=== PATIENT | female | born 1960 | race Caucasian/White ===

== ENCOUNTER 2019-11-30 07:03 | Outpatient (CLI) | payer OTHER, SELFPAY ==
[2019-11-30 07:52] LABS: Hematocrit 42.3 % (37.0-47.0); Mean Corpuscular HGB Conc 33.1 g/dl (32-36); Mean Corpuscular Hemoglobin 30.6 pg (26-34); Mean Corpuscular Volume 92.6 fl (80-100); Mean Platelet Volume 8.6 fl (7.4-10.4); Platelet Count Result 269 k/mm3 (150-375); Red Blood Count 4.57 M/mm3 (4.2-5.4); Red Cell Distribution Width 12.6 % (11.5-14.5); White Blood Count 4.9 K/mm3 (4.5-10.0)
[2019-11-30 08:04] LABS: Alanine Aminotransferase 41 U/L (4-35); Albumin Level 4.2 g/dL (3.5-5.1); Alkaline Phosphatase 143 U/L (38-126); Aspartate Amino Transferase 30 U/L (14-36); Bilirubin,Total 0.5 mg/dL (0.2-1.3); Blood Urea Nitrogen 21 mg/dL (7-17); Calcium 9.4 mg/dL (8.4-10.2); Carbon Dioxide 29 mmol/L (22-30); Chloride 100 mmol/L (98-107); Cholesterol 238 mg/dL (0-200); Estimated Glomerular Filt Rate > 60; Glucose 84 mg/dL (65-105); HDL Direct 84 mg/dL; Potassium 4.3 mmol/L (3.4-5.0); Sodium 141 mmol/L (137-145); Triglycerides 100 mg/dL (<150)
[2019-11-30 08:14] LABS: LDL Cholesterol Direct 130 mg/dL
[2019-11-30 09:08] LABS: Folic Acid 16.7 ng/mL (2.76->20)
[2019-12-03 10:21] LABS: Metanephrine, Free <25 pg/mL (<=57); Normetanephrine, Free 128 pg/mL (<=148); Total, Free (MN + NMN) 128 pg/mL (<=205)
== END 2019-11-30 07:04 | disposition home or self-care (01) ==
PROVIDERS: PCP Physician Assistant; Visit Provider Physician Assistant
DX: Z00.00 Encounter for general adult medical examination without abnormal findings (principal); I10 Essential (primary) hypertension
CPT/HCPCS: 36415; 80053; 80061; 82607; 82746; 83835; 84443; 85027

== ENCOUNTER 2019-12-20 07:55 | Outpatient (CLI) | payer OTHER, SELFPAY ==
--- NOTE | ~2019-12-20 | DEXA_ITS ---
Bone Density Report Name: Kimi Davison Age: 59 Sex: Female Ethnicity: White Date of : 1960 Indication: postmenopausal; height loss; Referring Provider: FÁTIMA DICKENS Study: Bone densitometry was performed. Exam Date: December 20, 2019 Accession number: [id number] Bone Density: Region BMD T-score Z-score Classification AP Spine (L1, L3) 1.567 5.0 6.3 Normal Femoral Neck (Left) 0.992 1.3 2.5 Normal Total Hip (Left) 1.127 1.5 2.4 Normal Total Hip Bilateral Avg 1.094 1.3 2.1 Normal Femoral Neck (Right) 0.970 1.1 2.3 Normal Total Hip (Right) 1.059 1.0 1.8 Normal World Health Organization criteria for BMD impression classify patients as: Normal (T-score at or above -1.0), Osteopenia (T-score between -1.0 and -2.5), or Osteoporosis (T-score at or below -2.5). 10-year Fracture Risk: FRAX not reported because: All T-scores for Spine Total, Hip Total, Femoral Neck at or above -1.0 Previous Exams: Region Exam Age BMD T-score BMD Change BMD Change Date g/cm2 vs Baseline vs Previous AP Spine(L1, L3) 12/20/2019 59 1.567 5.0 0.133(9.3%)# 0.029(1.9%)* 04/27/2017 57 1.537 4.8 0.104(7.2%)# 0.104(7.2%)# 11/10/2011 51 1.434 3.8 Total Hip(Left) 12/20/2019 59 1.127 1.5 -0.064(-5.3%)# -0.016(-1.4%) 04/27/2017 57 1.143 1.6 -0.048(-4.0%)# -0.048(-4.0%)# 11/10/2011 51 1.191 2.0 Total Hip(Right) 12/20/2019 59 1.059 1.0 -0.141(-11.7%) -0.044(-4.0%)* 04/27/2017 57 1.102 1.3 -0.097(-8.1%)# -0.097(-8.1%)# 11/10/2011 51 1.199 2.1 *Denotes significance at 95% confidence level, LSC for AP Spine = 0.022 g/cm2, LSC for Total Hip = 0.027 g/cm2 Clinical Information Provided by Patient: Patient maximum height was 65 Menopause Age: 51 No regular weight bearing exercise Onset of menses at age 14 Number of children 2 Impression: The patient has normal bone mass. The BMD for the Total Hip(Right) decreased, changing by -4.0% since the last DXA exam. Discussion: BONE DENSITY IS ABOVE THE MINIMUM DESIRABLE LEVEL AT ALL SKELETAL SITES TESTED. This patient?s bone mineral density is above the minimum desirable level (T-score -1.0 or better) at all sites measured. The patient should follow a healthful lifestyle (good nutrition with adequate calcium and vitamin D, and appropriate weight-bearing exercise). Follow-Up: Consider repeating this study in 3 to 4 years to reassess this patient's status, or sooner if the
== END 2019-12-20 07:56 | disposition home or self-care (01) ==
LOC: ANHIMG 07:57
PROVIDERS: PCP Physician Assistant; Visit Provider Obstetrics & Gynecology
DX: Z13.820 Encounter for screening for osteoporosis (principal); Z78.0 Asymptomatic menopausal state
CPT/HCPCS: 77080

== ENCOUNTER 2020-02-14 14:30 | Outpatient (RCR) | payer OTHER, SELFPAY ==
--- NOTE | 2020-01-17 15:49 | PTOPEVAL ---
INITIAL PHYSICAL THERAPY EVALUATION Thank you for referring Kimi Davison to [facility]. She will be seen in PT 1x/wk for 6 wks for vestibular rehab exercises. I was not able to reproduce + BPPV testing but she did have + VOR testing. Please review, sign, date and return this plan of care FREDDY. I agree with and certify that the following plan of care is medically necessary. Referring Physician Date Admitting Provider: Attending Provider: Bryan Rocha PA-C Referring Provider: *PT Outpatient Evaluation Start: 01/17/20 13:48 Freq: Status: Active Protocol: Document 01/17/20 13:40 BAN (Rec: 01/17/20 15:25 BAN [id number]) Therapy Assessment Status Assessment Status Assessment Status Evaluation Outpatient Past Medical History Past Medical History Source of Past Medical History Patient Neurological History Hx Migraine Yes: off/on, hasn't had a bad one in a long while Cardiovascular History Hx Hypertension Yes Respiratory History Hx Respiratory Disorders No Significant History Gastrointestinal History Hx Cholecystectomy Yes Hx Gastroesophageal Reflux Disease Yes Genitourinary History Hx Genitourinary Disorders No Significant History Musculoskeletal History Hx Orthopedic Surgery Yes: R knee surgery-torn meniscu Hx Spinal Surgery Yes: 20 yrs ago-L3-4 laminectomy Endocrine History Hx Endocrine Disorders No Significant History Reproductive History Hx Reproductive Disorders No Significant History Evaluation Information Problem Diagnosis benign paroxysmal vertigo Onset last week - real dizzy last Thursday night 01/10/20 Additional Evaluation Detail 1st episode 12 yrs ago - passed out - vomited - happened at work 2nd episode - another episode at work - didn't vomit - cold compresses at neck and forehead relieved symptoms Subjective Information Went to bed dizzy, woke up Query Text:As Reported By Patient/ dizzy - began to worry about Family BP - initially she thought it was BP related - was tested at MD office - severe reaction to [place] Hallpike manuever on the R side Increased dizziness rolling over in bed - usually worse to the L. Has always had difficulty with rides. Prior Level of Function Medications
--- NOTE | 2020-02-14 17:09 | PTOPEVAL ---
PHYSICAL THERAPY DISCHARGE SUMMARY Thank you for referring Kimi Davison to [facility]. Kimi was seen for 5 visits and all goals have been met. I agree with Kimi's discharge from PT. Referring Physician Date Admitting Provider: Attending Provider: Bryan Rocha PA-C Referring Provider: *PT Outpatient Evaluation Start: 01/17/20 13:48 Freq: Status: Active Protocol: Document 02/14/20 14:30 BAN (Rec: 02/14/20 17:09 BAN [email or web address]) Therapy Assessment Status Assessment Status Assessment Status Discharge Evaluation Information Problem Subjective Information Kimi reports that she is Query Text:As Reported By Patient/ doing well with her HEP. She Family states that she doesn't have dizziness while rolling over in bed now. She also has noticed that her eyes do not ache like they used to. She has no c/o's dizziness in regards to household or work activities now. Pain Assessment Timing of Pain Assessment Timing of Pain Assessment Assessment Self Report Self Report Pain Level 0 Pain Score Pain Score 0: Self Report PT Clinical Summary Clinical Summary Protocol: PTEVCODE PT Clinical Summary Dizziness Handicap Inventory - 6% Kimi has done well in PT in regards to vestibular rehabiliation. At her initial evaluation, Kimi had positive VOR tests and negative BPPV testing. PT treatment has been directed towards habituating her VOR - which has been successful. Kimi has been very compliant with her HEP which has helped with her success. She is to continue with her HEP on a regular basis and call if she has any questions. All goals have been met - d/ c from PT to HEP.
== END 2020-02-15 09:03 | disposition home or self-care (01) ==
LOC: ANHPT 14:30
PROVIDERS: PCP Physician Assistant; Visit Provider Physician Assistant
DX: H81.10 Benign paroxysmal vertigo, unspecified ear (principal)
CPT/HCPCS: 97110; 97162

== ENCOUNTER 2020-07-18 10:16 | Outpatient (CLI) | payer OTHER, SELFPAY ==
--- NOTE | 2020-07-18 11:30 | NEURO_ITS ---
Patient Number: [id number] Impression: # Complains of numbness an paresthesia of right hand. # Right Carpal Tunnel Syndrome. # No ulnar neuropathy. # Normal needle/EMG exam. Nerve Conduction Studies Anti Sensory Summary Table Stim Site NR Peak (ms) P-T Amp (?V) Site1 Site2 Delta-P (ms) Dist (cm) Archie (m/s) Right Median Anti Sensory (2-3nd Digit) Wrist 4.2 17.9 Wrist 2-3nd Digit 4.2 14.0 33 Wrist 4.3 8.9 Wrist 2-3nd Digit 4.2 14.0 33 Right Radial Anti Sensory (Base 1st Digit) Wrist 2.4 14.0 Wrist Base 1st Digit 2.4 0.0 Right Ulnar Anti Sensory (5th Digit) Wrist 2.3 27.1 Wrist 5th Digit 2.3 14.0 61 Motor Summary Table Stim Site NR Onset (ms) O-P Amp (mV) Site1 Site2 Delta-0 (ms) Dist (cm) Archie (m/s) Right Median Motor (Abd Poll Brev) Wrist 4.1 2.7 Elbow Wrist 4.7 27.0 57 Elbow 8.8 2.5 Right Ulnar Motor (Abd Dig Minimi) Wrist 2.3 5.0 A Elbow Wrist 5.1 29.0 57 A Elbow 7.4 3.8 F Wave Studies NR F-Lat (ms) L-R F-Lat (ms) Right Median (Mrkrs) (Abd Poll Brev) 30.04 Right Ulnar (Mrkrs) (Abd Dig Min) 29.06 EMG Side Muscle Nerve Root Ins Act Fibs Amp Dur Recrt Comment Right 1stDorInt Ulnar C8-T1 Nml Nml Nml Nml Nml Right Ext Indicis Radial (Post Int) C7-8 Nml Nml Nml Nml Nml Right Ext Digitorum Radial (Post Int) C7-8 Nml Nml Nml Nml Nml Right BrachioRad Radial C5-6 Nml Nml Nml Nml Nml Right PronatorTeres Median C6-7 Nml Nml Nml Nml Nml Right Abd Poll Brev Median C8-T1 Nml Nml Nml Nml Nml Right ABD Dig Min Ulnar C8-T1 Nml Nml Nml Nml Nml MTDD
== END 2020-07-18 10:17 | disposition home or self-care (01) ==
PROVIDERS: PCP Physician Assistant; Visit Provider Physician Assistant
DX: R20.0 Anesthesia of skin (principal); G56.01 Carpal tunnel syndrome, right upper limb
CPT/HCPCS: 95886; 95909

== ENCOUNTER 2020-11-30 13:58 | Outpatient (CLI) | payer OTHER, SELFPAY ==
[2020-11-30 14:55] LABS: Add Urine Microscopic? YES; Appearance Urine Clear (Clear); Bilirubin Urine Negative (Negative); Blood Urine 2+ (Negative); Color Urine Straw (Yellow); Glucose Urine UA Negative (Negative); Ketones Urine Negative (Negative); Leukocyte Esterase Ur 2+ LEU/UL (NEGATIVE); Mucus Urine Rare /lpf; Nitrate Urine Negative (Negative); Protein Urine Negative (Negative); Specific Grav Ur 1.011 (1.001-1.035); Urobilinogen Urine Negative mg/dL (<2.0); WBC Urine >75 /hpf (0-3)
== END 2020-11-30 13:59 | disposition home or self-care (01) ==
PROVIDERS: PCP Physician Assistant; Visit Provider Physician Assistant
DX: R30.0 Dysuria (principal)
CPT/HCPCS: 81001; 87086

== ENCOUNTER 2021-01-08 07:21 | Outpatient (CLI) | payer OTHER, SELFPAY ==
[2021-01-08 07:54] LABS: Hematocrit 37.7 % (37.0-47.0); Hemoglobin 12.8 g/dL (12.0-15.0); Mean Corpuscular Hemoglobin 31.4 pg (26-34); Mean Corpuscular Volume 92.4 fl (80-100); Mean Platelet Volume 8.5 fl (7.4-10.4); Platelet Count Result 266 k/mm3 (150-375); Red Blood Count 4.08 M/mm3 (4.2-5.4); Red Cell Distribution Width 12.4 % (11.5-14.5); White Blood Count 5.3 K/mm3 (4.5-10.0)
[2021-01-08 08:07] LABS: Alanine Aminotransferase 22 U/L (4-35); Albumin Level 4.1 g/dL (3.5-5.1); Alkaline Phosphatase 78 U/L (38-126); Anion Gap 5 mmol/L (8-16); Aspartate Amino Transferase 28 U/L (14-36); Bilirubin,Total 0.5 mg/dL (0.2-1.3); Blood Urea Nitrogen 28 mg/dL (7-17); Calcium 9.4 mg/dL (8.4-10.2); Carbon Dioxide 31 mmol/L (22-30); Chloride 104 mmol/L (98-107); Cholesterol 232 mg/dL (0-200); Estimated Glomerular Filt Rate 51; Glucose 96 mg/dL (65-105); HDL Direct 76 mg/dL; Sodium 140 mmol/L (137-145); Triglycerides 94 mg/dL (<150)
[2021-01-08 08:18] LABS: LDL Cholesterol Direct 108 mg/dL
[2021-01-08 09:12] LABS: Folic Acid 9.9 ng/mL (2.76->20)
== END 2021-01-08 07:22 | disposition home or self-care (01) ==
PROVIDERS: PCP Physician Assistant; Visit Provider Physician Assistant
DX: Z00.00 Encounter for general adult medical examination without abnormal findings (principal)
CPT/HCPCS: 36415; 80053; 80061; 82607; 82746; 84443; 85027

== ENCOUNTER 2021-02-28 07:18 | Outpatient (CLI) | payer OTHER, SELFPAY ==
--- NOTE | ~2021-02-28 | MM_ITS ---
EXAMINATION: MM scrn karri implant BI w che HISTORY: Screening mammogram TECHNIQUE: Craniocaudal and mediolateral oblique 3-D tomosynthesis images with implant displacement a nd synthetic 2-D images were generated. Craniocaudal and mediolateral oblique views of the breasts wi thout implant displacement were obtained using full field digital mammography. CAD analysis was submi tted and interpreted. COMPARISON: Comparison to multiple prior studies sequentially, with oldest reviewed study dated 04/10. BREAST PARENCHYMAL COMPOSITION: There are scattered areas of fibroglandular density. FINDINGS: There are subpectoral silicone breast implants. There is no evidence of suspicious mass, ca lcification, or architectural distortion to suggest malignancy in either breast. There has been no villafana spicious interval change. IMPRESSION: 1. No mammographic evidence of malignancy. 2. Recommend routine screening mammography in one year. BI-RADS Category 1: Negative Reviewed, dictated and finalized at location A.
== END 2021-02-28 07:19 | disposition home or self-care (01) ==
LOC: ANHIMG 07:22
PROVIDERS: PCP Physician Assistant; Visit Provider Obstetrics & Gynecology
DX: Z12.31 Encounter for screening mammogram for malignant neoplasm of breast (principal)
CPT/HCPCS: 77063; 77067

== ENCOUNTER 2021-08-05 08:15 | Emergency (ER) | payer OTHER, SELFPAY ==
--- NOTE | ~2021-08-05 | CT_ITS ---
EXAMINATION: CT brain wo con DATE: 08/05/2021 09:16 INDICATION: Dizziness. TECHNIQUE: Computed tomography (CT) of the head was performed without intravenous contrast. The mA wa s adjusted according to patient size. Iterative reconstruction technique was employed. The dose-lengt h product was 605.33 mGy-cm. COMPARISON: Head CT 10/19/2006 FINDINGS: There are scattered areas of low attenuation in the cerebral white matter, which is within normal limits for the patient's age. There is no intracranial hemorrhage, acute infarction, or abnorm al intracranial mass lesion. The ventricles are normal in size. The paranasal sinuses are clear. The mastoid air cells are normal. The orbits are normal. IMPRESSION: 1. Normal aging brain. Reviewed, dictated and finalized at location A. IMPRESSION: 1. Normal aging brain.
[2021-08-05 08:20] VITALS: BP 191/106; PULSE 62; RESP 13; TEMP 36.8; O2SAT 100
[2021-08-05 08:45] VITALS: BP 151/94; PULSE 67; RESP 16; TEMP 36.6; O2SAT 100
[2021-08-05 09:00] VITALS: BP 168/93; PULSE 68; RESP 14; O2SAT 100
[2021-08-05 09:33] LABS: Basophils Percent Auto 0.5 % (0.2-1.2); Eosinophils Absolute Auto 0.1 K/mm3 (0-0.3); Eosinophils Percent Auto 2.6 % (0-4.4); Hematocrit 43.6 % (37.0-47.0); Hemoglobin 14.9 g/dL (12.0-15.0); Immature Granulocyte Absolute 0.03 K/mm3 (0.00-0.031); Immature Granulocyte Percent A 0.5 % (0-0.5); Lymphocytes Absolute Auto 1.31 K/mm3 (0.9-3.2); Lymphocytes Percent Auto 23.9 % (18.3-44.2); Mean Corpuscular HGB Conc 34.2 g/dl (32-36); Mean Corpuscular Hemoglobin 32.1 pg (26-34); Mean Platelet Volume 8.3 fl (7.4-10.4); Monocytes Absolute Auto 0.3 K/mm3 (0.1-0.6); Monocytes Percent Auto 5.8 % (2.6-8.5); Neutrophils Absolute Auto 3.7 K/mm3 (1.3-6.7); Neutrophils Percent Auto 66.7 % (45.5-73.1); Platelet Count Result 284 k/mm3 (150-375); Red Blood Count 4.64 M/mm3 (4.2-5.4); Red Cell Distribution Width 12.5 % (11.5-14.5); White Blood Count 5.5 K/mm3 (4.5-10.0)
[2021-08-05] MEDS: diazePAM INJ (*CRX) 10 MG/2 ML SYRINGE 5 MG IV PUSH (09:34)
[2021-08-05] MEDS: SODIUM CHLORIDE 0.9% IV 1,000 ML 999 ML IV CONT (09:35)
[2021-08-05 09:49] LABS: Anion Gap 8 mmol/L (8-16); Blood Urea Nitrogen 20 mg/dL (7-17); Calcium 10.8 mg/dL (8.4-10.2); Carbon Dioxide 29 mmol/L (22-30); Chloride 103 mmol/L (98-107); Estimated CRCL calculation 56 ml/min; Estimated Glomerular Filt Rate 57; Glucose 99 mg/dL (65-110); Sodium 140 mmol/L (137-145)
--- NOTE | 2021-08-05 12:19 | ED.GENADULT ---
HPI - General Adult General Chief complaint: Dizziness Stated complaint: dizziness Time Seen by Provider: 08/05/21 08:18 History of Present Illness HPI narrative: Patient is a 61-year-old female who presents to the ER with dizziness. Reports its been causing her issues for the last 5 days. Spinning and intense. Saw her PCP and was started on meclizine. Somewhat improved to feeling like she was on a boat. Has had issues with this in the past. No focal weakness or numbness in arm or leg. Symptoms continued today so she is looking for additional help. She has had physical therapy for vertigo in the past. Denies sinus congestion or ear pressure. No tinnitus. Related Data Home Medications Medication Instructions Recorded Confirmed Calcium + Vitamin D 08/05/21 08/05/21 Fish Oil 08/05/21 Allergies Allergy/AdvReac Type Severity Reaction Status Date / Time No Known Allergies Allergy Verified 08/05/21 08:26 Review of Systems Review of Systems: All systems reviewed & are unremarkable except as noted in HPI and below Constitutional: Constitutional: Denies chills, Denies fever(s) and Denies weakness ENT: Reports vertigo, Reports dizziness and Denies sore throat Cardiovascular: Cardiovascular: Denies chest pain and Denies radiating jaw, neck or arm pain Respiratory: Respiratory: Denies cough, Denies dyspnea and Denies wheezing Gastrointestinal: Gastrointestinal: Denies abdominal pain, Reports nausea and Denies vomiting Neurologic: Denies syncope, Denies headache(s), Denies focal weakness and Denies numbness PMFSH Past Medical History Medical History (Updated 08/05/21 @ 12:20 by Clif Navarro MD) History of vaginal delivery x 2 Hypertension Left knee pain Plantar fasciitis of left foot Surgical History Surgical History (Updated 03/04/21 @ 08:25 by Sera Peace, RT(R)) History of arthroscopic knee surgery History of cholecystectomy History of endometrial ablation History of laminectomy History of lumpectomy History of tubal ligation Hx of augmentation mammoplasty Family History Family History Father Hypertension Family history of elevated blood lipids Patient's father is Mother Family history of elevated blood lipids, Onset Age: 75 Other Family history of arthritis Social History Social History (Updated 03/04/21 @ 08:25 by Sera D. Peace, RT(R)) Smoking status: Never smoker Second hand tobacco smoke exposure: No Alcohol intake: current Drinks per week: 2 Substance use: never Substance use type: does not use Gender identity (if verbalized by the patient): Female Exam Narrative: GENERAL: Well-appearing, well-nourished, and in no acute distress. HEAD: Normocephalic, atraumatic. EYES: PERRL and EOMI. ENT: Mucous membranes moist. TMs normal bilaterally with clear canals free of debris. CHEST: Clear to auscultation. No respiratory distress. HEART: Regular rate and rhythm. Normal peripheral pulses. ABDOMEN: Soft, nontender, nondistended. EXTREMITIES: Normal range of motion. No edema. NEURO: Alert and oriented x3. PSYCH: Normal mood and affect. Course Course Emergency Course: Patient hydrated and received IM. Modest improvement in her dizziness and able ambulate. No success with Feliciano maneuver. Discussed need for follow-up. Will refer to ENT. Vital Signs Vital signs: Vital Signs Temperature 98.2 F 08/05/21 08:20 Pulse Rate 62 08/05/21 08:20 Respiratory Rate 13 08/05/21 08:20 Blood Pressure 191/106 H 08/05/21 08:20 Pulse Oximetry 100 08/05/21 08:20 Temperature 98 F 08/05/21 08:45 Pulse Rate 68 08/05/21 09:00 Respiratory Rate 14 08/05/21 09:00 Blood Pressure 168/93 H 08/05/21 09:00 Pulse Oximetry 100 08/05/21 09:00 Medical Decision Making Vital Signs Vital Signs: Vital Signs Temperature 98.2 F 08/05/21 08:20 Pulse Rat
[2021-08-05 15:09] VITALS: BP 146/103; PULSE 66; RESP 18; TEMP 36.8; O2SAT 100
== END 2021-08-05 12:40 | disposition home or self-care (01) ==
PROVIDERS: Emergency Provider Emergency Medicine; PCP Physician Assistant
DX: H81.10 Benign paroxysmal vertigo, unspecified ear (principal); I10 Essential (primary) hypertension
CPT/HCPCS: 36415; 70450; 80048; 85025; 96361; 96374; 99284; J3360; J7030

== ENCOUNTER 2021-08-06 11:21 | Outpatient (CLI) | payer OTHER, SELFPAY ==
[2021-08-06 12:21] LABS: Parathyroid Intact 44.2 pg/mL (7.5-53.5)
[2021-08-09 23:55] LABS: Ionized Calcium 5.1 mg/dL (4.8-5.6)
== END 2021-08-06 11:22 | disposition home or self-care (01) ==
LOC: ANHLAB 11:24
PROVIDERS: PCP Physician Assistant; Visit Provider Physician Assistant
DX: E83.52 Hypercalcemia (principal)
CPT/HCPCS: 36415; 82330; 83970

== ENCOUNTER 2022-03-30 15:32 | Emergency (ER) | payer OTHER, SELFPAY ==
[2022-03-30 15:33] VITALS: BP 125/72; PULSE 68; RESP 16; TEMP 36.1; O2SAT 100
--- NOTE | 2022-03-30 16:52 | ED.WOUNDLAC ---
HPI - Wound/Laceration General Chief Complaint: Wound/Laceration Stated Complaint: right little finger laceration Time Seen by Provider: 03/30/22 15:40 History of Present Illness HPI narrative: Patient is a 62-year-old female who presents ER with laceration to her right fifth digit. Its over the ulnar aspect of the fifth digit at the DIP moving towards PIP. Its 2.5 cm in length. Numbness and tingling intact. Unknown last tetanus shot. Patient was opening a green castillo can when she lacerated herself. Patient then suffered syncope x3 as well as emesis. She did not strike her head according to who was present and helped her down to the ground. Related Data Home Medications Medication Instructions Recorded Confirmed Calcium + Vitamin D 08/05/21 12/16/21 Fish Oil 08/05/21 12/16/21 Allergies Allergy/AdvReac Type Severity Reaction Status Date / Time No Known Allergies Allergy Verified 03/30/22 15:37 Review of Systems Review of Systems: All systems reviewed & are unremarkable except as noted in HPI and below Constitutional: Constitutional: Denies chills and Denies fever(s) Gastrointestinal: Gastrointestinal: Denies abdominal pain, Reports diarrhea, Reports nausea and Reports vomiting Musculoskeletal: Musculoskeletal: Denies arthralgias and Denies joint swelling Integumentary/Breasts: Comments: Finger laceration Neurologic: Reports syncope, Denies focal weakness and Denies numbness PMFSH Past Medical History Medical History History of vaginal delivery x 2 Hypertension Left knee pain Plantar fasciitis of left foot Surgical History Surgical History History of arthroscopic knee surgery History of cholecystectomy History of endometrial ablation History of laminectomy History of lumpectomy History of tubal ligation Hx of augmentation mammoplasty Family History Family History Father Hypertension Family history of elevated blood lipids Patient's father is Mother Family history of elevated blood lipids, Onset Age: 75 Other Family history of arthritis Social History Social History Smoking status: Never smoker Second hand tobacco smoke exposure: No Alcohol intake: current Drinks per week: 2 Substance use: never Substance use type: does not use Gender identity (if verbalized by the patient): Female Exam Narrative: GENERAL: Well-appearing, well-nourished, and in no acute distress. HEAD: Normocephalic, atraumatic. CHEST: Clear to auscultation. No respiratory distress. HEART: Regular rate and rhythm. Normal peripheral pulses. EXTREMITIES: Right hand with laceration at the fifth digit going from the ulnar aspect of the PIP proximally towards the DIP. Tendon can be visualized distal to the DIP but not proximally. There is a transverse laceration. Patient cannot achieve full extension at the DIP. Flexion intact at all joints in the affected hand. Sharp and soft touch intact in the fifth digit of the right hand. SKIN: Warm, dry, no rash. NEURO: No focal deficits. Alert and oriented x3. PSYCH: Normal mood and affect. Course Course Emergency Course: Finger repaired. 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 I cannot see the proximal portion. Patient cannot achieve full extension at her DIP. She has been instructed to follow-up with hand surgery and has been provided a phone number. She has been splinted in extension. She has had her tetanus shot updated. Vital Signs Vital signs: Vital Signs Temperature 97.0 F L 03/30/22 15:33 Pulse Rate 68 03/30/22 15:33 Respiratory Rate 16 03/30/22 15:33 Blood Pressure 125/72 03/30/22 15:33 Pulse Oximetry 100 03/30/22 15:33 Oxygen D
[2022-03-30] MEDS: TETANUS,DIPHTHERIA,AC PERTUSSIS ADULT (0.5 ML) BOOSTRIX IM (17:07)
== END 2022-03-30 18:06 | disposition home or self-care (01) ==
PROVIDERS: Emergency Provider Emergency Medicine; PCP Physician Assistant
DX: S61.216A Laceration without foreign body of right little finger without damage to nail, initial encounter (principal); S66.326A Laceration of extensor muscle, fascia and tendon of right little finger at wrist and hand level, initial encounter; I10 Essential (primary) hypertension; Z23 Encounter for immunization; W26.8XXA Contact with other sharp object(s), not elsewhere classified, initial encounter
CPT/HCPCS: 12001; 90471; 90715; 99283

== ENCOUNTER 2022-05-26 07:24 | Outpatient (CLI) | payer OTHER, SELFPAY ==
--- NOTE | ~2022-05-26 | MM_ITS ---
EXAMINATION: MM scrn karri implant BI w che HISTORY: Screening mammogram TECHNIQUE: Craniocaudal and mediolateral oblique 3-D tomosynthesis images with implant displacement a nd synthetic 2-D images were generated. Craniocaudal and mediolateral oblique views of the breasts wi thout implant displacement were obtained using full field digital mammography. CAD analysis was submi tted and interpreted. COMPARISON: No prior mammogram is available for comparison at this institution. BREAST PARENCHYMAL COMPOSITION: There are scattered areas of fibroglandular density. FINDINGS: Status post bilateral augmentation mammoplasty. There is no evidence of suspicious mass, ca lcification, or architectural distortion to suggest malignancy in either breast. There has been no villafana spicious interval change. IMPRESSION: 1. No mammographic evidence of malignancy. 2. Recommend routine screening mammography in one year. BI-RADS Category 1: Negative Reviewed, dictated and finalized at location A.
== END 2022-05-26 07:25 | disposition home or self-care (01) ==
PROVIDERS: PCP Physician Assistant; Visit Provider Obstetrics & Gynecology
DX: Z12.31 Encounter for screening mammogram for malignant neoplasm of breast (principal)
CPT/HCPCS: 77063; 77067

== ENCOUNTER 2022-09-16 10:16 | Outpatient (CLI) | payer OTHER, SELFPAY ==
--- NOTE | ~2022-09-16 | XR_ITS ---
XR shoulder RT min 2V DATE: 09/16/2022 10:43 INDICATION: Injury one year ago. Right shoulder pain TECHNIQUE: 4 views COMPARISON: None FINDINGS: Degenerative spurring of the thoracic spine. No fracture or dislocation, periosteal reaction or bone destruction or abnormal calcification of the right shoulder. IMPRESSION: Negative right shoulder Reviewed, dictated and finalized at location B. [employer] CONTINUITY IMPRESSION: Negative right shoulder
== END 2022-09-16 10:17 | disposition home or self-care (01) ==
PROVIDERS: PCP Physician Assistant; Visit Provider Orthopaedic Surgery
DX: M25.511 Pain in right shoulder (principal)
CPT/HCPCS: 73030

== ENCOUNTER 2022-09-16 15:34 | Outpatient (CLI) | payer OTHER, SELFPAY ==
--- NOTE | ~2022-09-16 | MR_ITS ---
EXAMINATION: MR shoulder RT wo con DATE: 09/16/2022 16:34 INDICATION: Right shoulder pain. TECHNIQUE: Magnetic resonance imaging (MRI) of the right shoulder was performed without intravenous c ontrast. Sequences included axial PD-weighted FS FSE, coronal oblique PD-weighted FS FSE and T2-weigh christoph FS FSE, and sagittal oblique T2-weighted FS FSE and T1-weighted FSE. COMPARISON: Right shoulder radiographs 09/16/2022 FINDINGS: Coracoacromial arch: The acromion undersurface is curved in morphology with anterior hook (type III). There is severe acro mioclavicular joint osteoarthritis including inferiorly directed osteophytes. There is moderate subac romial/subdeltoid bursitis. Rotator cuff: There is an articular-sided partial-thickness tear of supraspinatus tendon measuring 9 mm anterior to posterior by 3 mm proximal to distal by 70% tendon thickness. There is a partial thickness tear of t he myotendinous junction of infraspinatus with small hematoma. There is moderate infraspinatus tendin opathy. Teres minor tendon is normal. Infraspinatus tendon demonstrates tendinopathy and a small inte rstitial tear. There is moderate fatty atrophy of teres minor muscle belly, which may be seen with qu adrilateral space syndrome. Biceps tendon and glenoid labrum: Biceps tendon is in bicipital groove. There is mild intra-articular biceps tendinopathy. There is deg enerative tearing of the superior labrum from 10:00 to 12:00 (SLAP tear). Fluid: There is a small glenohumeral joint effusion. Bones/cartilage: There is shallow partial-thickness cartilage loss of glenoid, worst anteriorly. There is deep partial thickness cartilage loss of humeral head involving the anterior articular surface. Osteophytes are n oted at glenohumeral joint. IMPRESSION: 1. Partial-thickness rotator cuff tears. Partial tear of infraspinatus muscle (grade 2 strain). 2. Moderate glenohumeral joint chondrosis. SLAP tear. 3. Small glenohumeral joint effusion. 4. Mild intra-articular biceps tendinopathy. 5. Moderate subacromial/subdeltoid bursitis. 6. Severe acromioclavicular joint osteoarthritis. 7. Moderate fatty atrophy of teres minor muscle belly, consistent with quadrilateral space syndrome. Reviewed, dictated and finalized at location E. ADMIT IMPRESSION: 1. Partial-thickness rotator cuff tears. Partial tear of infraspinatus muscle ( grade 2 strain). 2. Moderate glenohumeral joint chondrosis. SLAP tear. 3. Small glenohumeral joint effusion. 4. Mild intra-articular biceps tendinopathy. 5. Moderate subacromial/subdeltoid bursitis. 6. Severe acromioclavicular joint osteoarthritis. 7. Moderate fatty atrophy of teres minor muscle belly, consistent with quadrila teral space syndrome.
== END 2022-09-16 15:35 | disposition home or self-care (01) ==
LOC: ANHIMG 15:37
PROVIDERS: PCP Physician Assistant; Visit Provider Orthopaedic Surgery
DX: M25.511 Pain in right shoulder (principal); M75.101 Unspecified rotator cuff tear or rupture of right shoulder, not specified as traumatic; S43.431A Superior glenoid labrum lesion of right shoulder, initial encounter; M25.411 Effusion, right shoulder; M19.011 Primary osteoarthritis, right shoulder
CPT/HCPCS: 73221

== ENCOUNTER 2022-12-11 06:37 | Outpatient (CLI) | payer OTHER, SELFPAY ==
--- NOTE | ~2022-12-11 | XR_ITS ---
AP view of the pelvis and AP and lateral views of the right hip Clinical history: Pain Findings: No acute fracture or dislocation is seen. Osseous alignment is anatomic. Probable minimal d egenerative change of the right hip joint noted. Left hip joint is preserved. SI joints are unremarka ble. Soft tissues are unremarkable. Impression: Minimal right hip joint degenerative change. Reviewed, dictated and finalized at location . ARIAN Impression: Minimal right hip joint degenerative change.
== END 2022-12-11 06:38 | disposition home or self-care (01) ==
PROVIDERS: PCP Physician Assistant; Visit Provider Orthopaedic Surgery
DX: M25.551 Pain in right hip (principal)
CPT/HCPCS: 73502

== ENCOUNTER 2022-12-22 14:45 | Outpatient (RCR) | payer OTHER, SELFPAY ==
--- NOTE | 2022-09-25 10:39 | PTOPEVAL1 ---
Assessment and note entered by Cyril Worthy, PT Evaluation Information Assessment Status Evaluation Diagnosis R rotator cuff tear with Bicipital tendinitis Onset started Spring of this year, having increased pain September 13. Subjective Information Patient report that starting this year she was feeling pain in her shoulder from pulling to start her lawnmower. Was also having trouble with sleeping and putting objects away in her cabinets. Then on ThursdaySep.13 she was washing her crockpot and to prevent the crockpot from slipping out of her hand she rotated her arm and since then the pain has spiked. Reported Pain Level Pain Score 5: Self Report Additional Pain Score Comments went down to 4 after therapy session with manual and modalities. Assessment PT Clinical Summary Kimi is a 62 year old female coming into the clinic for R shoulder pain from probable rotator cuff tear and bicipital tendinitis. She has trouble with over head lifting, sleeping, sitting for long periods of time without moving. Patient has positive lift off and Infraspinatus test to go with decreased range of motion and strength on the R shoulder compared to the L side. Patient should benefit from skilled physical therapy to improve strength and range of motion of the R shoulder along with reduced pain through strengthening, stretching, manual therapy, education on posture, and modalities. Plan of Care Interventions Electrical Stimulation,Gait Training,Hot Pack/Cold Pack,Manual Therapy,Neuro Re-education,Patient/ Caregiver Education,Therapeutic Activities, Therapeutic Exercise,Ultrasound Other Interventions taping PT Services Indicated Yes Treatment Frequency and 2x/wk for 4 weeks Duration These treatments will address the objective and functional deficits as defined above. The patient will be advanced safely and appropriately in order for the patient to progress towards his/her prior level of function. Additional exercises will be introduced and as well as a comprehensive home exercise program upon discharge, if needed, ?to ensure carryover of functional gains achieved in the clinic. This treatment plan has been reviewed and agreement upon by the patient.
--- NOTE | 2022-10-23 17:45 | PTOPREEVAL ---
Assessment and note entered by Cyril Worthy, PT Evaluation Information Assessment Status Re-evaluation Diagnosis R rotator cuff tear with bicipital tendinitis Onset started spring of this year with increased pain Dec. 3rd. Subjective Information Patient reports she is still having trouble sleeping causing her to wake up about twice a night, but noticing less pain overall and being able to do the exercises easier. Reported Pain Level Pain Score 1: Self Report Additional Pain Score Comments down from 5/10 at eval, 9/10 at worst to 1/10 current and 6/10 worst. Assessment PT Clinical Summary Kimi is a 62 year old female coming into the clinic for R RTC injury. She has improvement in self reported pain rating and flexion, external rotator strength, and abduction active range of motion. She has been able to progress to TheraBand exercises from isometrics. Still has a tight posterior capsule causing her to wake up when lying on it and no improvement in active external and internal rotation. Will continue to work on patient in multiplane strengthening and range of motion to loosen up the capsule. Recommend continued physical therapy visits. Plan of Care Interventions Electrical Stimulation,Gait Training,Hot Pack/Cold Pack,Manual Therapy,Neuro Re-education,Patient/ Caregiver Education,Therapeutic Activities, Therapeutic Exercise PT Services Indicated Yes Treatment Frequency and 2x/wk for 4 weeks Duration These treatments will address the objective and functional deficits as defined above. The patient will be advanced safely and appropriately in order for the patient to progress towards his/her prior level of function. Additional exercises will be introduced and as well as a comprehensive home exercise program upon discharge, if needed, ?to ensure carryover of functional gains achieved in the clinic. This treatment plan has been reviewed and agreement upon by the patient.
--- NOTE | 2022-11-20 15:32 | PTOPEVAL1 ---
Assessment and note entered by Sil Bales, PT Evaluation Information Assessment Status Progress Diagnosis R rotator cuff tear with bicipital tendinitis Onset started spring of this year with increased pain Dec. 3rd. Subjective Information Pt reports that she continues to have difficulty with sleeping due to pain, as well as reaching behind her back to adjust/hook her bra. She reports that overall she feels like things are improving and that therapy has been helping. Reported Pain Level Pain Score 2: Self Report Additional Pain Score Comments Pt reports 7/10 at the worst Assessment PT Clinical Summary Kimi has demonstrated improvements in her shoulder active ROM since last report was written. She continues to have deficits as well as pain limiting her ability to perform reaching behind her back to hook/unhook her bra and pain with sleeping at night. She reports that her shoulder feels better after manual therapy and looser feeling. She would continue to benefit from skilled PT to address these deficits and assist her in improving her functional mobility. Plan of Care Interventions Electrical Stimulation,Gait Training,Hot Pack/Cold Pack,Manual Therapy,Neuro Re-education,Patient/ Caregiver Educati,Therapeutic Activities, Therapeutic Exercise PT Services Indicated Yes Treatment Frequency and 1-2x/week for 4 weeks Duration These treatments will address the objective and functional deficits as defined above. The patient will be advanced safely and appropriately in order for the patient to progress towards his/her prior level of function. Additional exercises will be introduced and as well as a comprehensive home exercise program upon discharge, if needed, ?to ensure carryover of functional gains achieved in the clinic. This treatment plan has been reviewed and agreement upon by the patient.
--- NOTE | 2022-12-09 12:25 | PCPTNOTE ---
Addendum entered by Magui Montoya, REPAIRER FINISHED METAL 12/09/22 13:37: Therapeutic exercise x 30 min Manual therapy x 15 min Original Note: Late entry for 11/06/22; S:Pt presented today with no new complaints. She continues to note pain more in the evening hours and not too bad during the day. Movements behind her back and out to the side are still sore. Pt stated sleeping is still not good. O: Pt performed Red theraband R ER x 10, shoulder extension x 10 with yellow theraband, Horizontal ADD with yellow theraband x 10, PNF D2 x 10 with Yellow theraband, shoulder rows with scapular retraction 2 x 10 with red theraband, standing wall flexion with lift off x 10 and standing towel stretch 3 x 20 sec holds. Pt received [facility] e-stim surrounding her R shoulder joint for decreasing pain in her shoulder with ice for 15 minutes. A: Pt tolerated her session with occasional breaks for fatigue and discomfort. Verbal and tactile cueing shoulder hiking and for scapular adduction. Pt stated her shoulder felt much looser and no increase in pain. Education was given on the importance of posture during exercises for scapular adduction and scapular depression. P: Progress pt strengthening as tolerated focusing on scapular strength and stability.
== END 2022-12-24 09:24 | disposition home or self-care (01) ==
LOC: ANHPT 14:45
PROVIDERS: PCP Physician Assistant; Visit Provider Orthopaedic Surgery
DX: M75.21 Bicipital tendinitis, right shoulder (principal); M75.111 Incomplete rotator cuff tear or rupture of right shoulder, not specified as traumatic
CPT/HCPCS: 97014; 97110; 97140; 97161; 97530; G0283

== ENCOUNTER 2022-12-24 06:55 | Outpatient (CLI) | payer OTHER, SELFPAY ==
[2022-12-24 07:47] LABS: Basophils Percent Auto 0.7 % (0.2-1.2); Eosinophils Absolute Auto 0.2 K/mm3 (0-0.3); Eosinophils Percent Auto 3.5 % (0-4.4); Hematocrit 41.3 % (37.0-47.0); Hemoglobin 13.7 g/dL (12.0-15.0); Immature Granulocyte Absolute 0.02 K/mm3 (0.00-0.031); Immature Granulocyte Percent A 0.3 % (0-0.5); Lymphocytes Absolute Auto 1.85 K/mm3 (0.9-3.2); Lymphocytes Percent Auto 32.3 % (18.3-44.2); Mean Corpuscular HGB Conc 33.2 g/dl (32-36); Mean Corpuscular Hemoglobin 30.7 pg (26-34); Mean Corpuscular Volume 92.6 fl (80-100); Mean Platelet Volume 8.4 fl (7.4-10.4); Monocytes Absolute Auto 0.4 K/mm3 (0.1-0.6); Monocytes Percent Auto 7.2 % (2.6-8.5); Neutrophils Absolute Auto 3.2 K/mm3 (1.3-6.7); Platelet Count Result 288 k/mm3 (150-375); Red Blood Count 4.46 M/mm3 (4.2-5.4); Red Cell Distribution Width 12.6 % (11.5-14.5); White Blood Count 5.7 K/mm3 (4.5-10.0)
[2022-12-24 07:55] LABS: Alanine Aminotransferase 27 U/L (6-35); Albumin Level 4.2 g/dL (3.5-5.1); Alkaline Phosphatase 85 U/L (38-126); Anion Gap 4 mmol/L (8-16); Aspartate Amino Transferase 29 U/L (14-36); Bilirubin,Total 0.7 mg/dL (0.2-1.3); Blood Urea Nitrogen 19 mg/dL (7-17); Calcium 9.2 mg/dL (8.4-10.2); Carbon Dioxide 30 mmol/L (22-30); Chloride 106 mmol/L (98-107); Cholesterol 253 mg/dL (0-200); Estimated Glomerular Filt Rate 56; Glucose 91 mg/dL (65-110); HDL Direct 85 mg/dL; Sodium 140 mmol/L (137-145); Triglycerides 118 mg/dL (<150)
[2022-12-24 08:07] LABS: LDL Cholesterol Direct 124 mg/dL
[2022-12-24 09:01] LABS: Folic Acid 11.1 ng/mL (2.76->20)
== END 2022-12-24 06:56 | disposition home or self-care (01) ==
PROVIDERS: PCP Physician Assistant; Visit Provider Physician Assistant
DX: Z00.00 Encounter for general adult medical examination without abnormal findings (principal)
CPT/HCPCS: 36415; 80053; 80061; 82607; 82746; 84443; 85025

== ENCOUNTER 2023-06-29 07:22 | Outpatient (CLI) | payer OTHER, SELFPAY ==
--- NOTE | 2023-06-29 07:55 | ECG_ITS ---
Measurements Intervals [place] Rate: 63 P: 34 TN: 166 QRS: 53 QRSD: 94 T: 3 QT: 384 QTc: 395 Interpretive Statements SINUS RHYTHM BORDERLINE ST-T WAVE ABNORMALITY- INFERIOR LEADS BORDERLINE ECG NO PREVIOUS ECG AVAILABLE FOR COMPARISON Electronically Signed On 06-29-2023 8:19:37 CDT by Troy Infante D.O.
[2023-06-29 07:58] LABS: Hematocrit 40.4 % (37.0-47.0); Hemoglobin 13.7 g/dL (12.0-15.0)
[2023-06-29 08:08] LABS: Albumin Level 4.2 g/dL (3.5-5.1); Estimated Glomerular Filt Rate 56; Glucose 94 mg/dL (65-110)
[2023-06-29 08:16] LABS: Hemoglobin A1C 5.1 % (<5.7)
[2023-06-29 09:45] LABS: Urine Cotinine NEGATIVE
== END 2023-06-29 07:23 | disposition home or self-care (01) ==
PROVIDERS: Visit Provider Orthopaedic Surgery
DX: M16.11 Unilateral primary osteoarthritis, right hip (principal); I12.9 Hypertensive chronic kidney disease with stage 1 through stage 4 chronic kidney disease, or unspecified chronic kidney disease; N18.31 Chronic kidney disease, stage 3a; E83.52 Hypercalcemia; R93.1 Abnormal findings on diagnostic imaging of heart and coronary circulation
CPT/HCPCS: 80307; 82040; 82565; 82947; 83036; 85014; 85018; 93005

== ENCOUNTER 2023-08-03 11:47 | Outpatient (CLI) | payer OTHER, SELFPAY ==
[2023-08-03 13:05] LABS: Basophils Percent Auto 0.5 % (0.2-1.2); Eosinophils Absolute Auto 0.2 K/mm3 (0-0.3); Hematocrit 38.5 % (37.0-47.0); Hemoglobin 12.8 g/dL (12.0-15.0); Immature Granulocyte Absolute 0.02 K/mm3 (0.00-0.031); Immature Granulocyte Percent A 0.4 % (0-0.5); Lymphocytes Absolute Auto 1.59 K/mm3 (0.9-3.2); Lymphocytes Percent Auto 28.9 % (18.3-44.2); Mean Corpuscular HGB Conc 33.2 g/dl (32-36); Mean Corpuscular Hemoglobin 31.3 pg (26-34); Mean Corpuscular Volume 94.1 fl (80-100); Mean Platelet Volume 8.3 fl (7.4-10.4); Monocytes Absolute Auto 0.4 K/mm3 (0.1-0.6); Monocytes Percent Auto 7.3 % (2.6-8.5); Neutrophils Absolute Auto 3.3 K/mm3 (1.3-6.7); Neutrophils Percent Auto 58.9 % (45.5-73.1); Platelet Count Result 278 k/mm3 (150-375); Red Blood Count 4.09 M/mm3 (4.2-5.4); White Blood Count 5.5 K/mm3 (4.5-10.0)
[2023-08-03 13:14] LABS: Anion Gap 5 mmol/L (8-16); Blood Urea Nitrogen 18 mg/dL (7-17); Calcium 9.2 mg/dL (8.4-10.2); Carbon Dioxide 28 mmol/L (22-30); Chloride 103 mmol/L (98-107); Estimated Glomerular Filt Rate > 60; Glucose 90 mg/dL (65-110); Potassium 3.7 mmol/L (3.4-5.0); Sodium 136 mmol/L (137-145)
== END 2023-08-03 11:48 | disposition home or self-care (01) ==
LOC: ANHSURGERY 11:54
PROVIDERS: Anesthesiology; PCP Physician Assistant; Visit Provider Orthopaedic Surgery
DX: Z01.818 Encounter for other preprocedural examination (principal); M16.11 Unilateral primary osteoarthritis, right hip; Z79.899 Other long term (current) drug therapy
CPT/HCPCS: 36415; 80048; 85025; 87081

== ENCOUNTER 2023-08-25 00:59 | Day surgery (SDC) | payer OTHER, SELFPAY ==
--- NOTE | 2023-08-03 11:46 | PC.NURSE ---
PRE-OP INSTRUCTIONS, PLEASE READ CAREFULLY Report to the Outpatient Waiting Room, entrance under the green pavilion located off [facility], at time _0630_ on date _08/25/23_. Planned Procedure Time: _0830_. PACK A SMALL OVERNIGHT BAG AND LEAVE IN THE CAR ALONG WITH YOUR WALKER Time changes happen often and if your time is changed the preop area will call you the afternoon before. - You and your visitor will be asked to self-screen and do not enter if you have any COVID symptoms. - A mask is optional within the hospital at this time. -VISITING HOURS 8AM-8PM Patients may have clear liquids (water, carbonated beverages, clear teas, apple juice) until 3 hours prior to surgery (0530 AM) with a maximum of 20 ounces. - No food from midnight until time of surgery Take the following medications with a SIP of water the morning of surgery: _DIAZEPAM IF NEEDED_ DO NOT STOP ANY OF YOUR OTHER PRESCRIPTION MEDICATIONS PRIOR TO SURGERY ?EXCEPT THE FOLLOWING Medications to discontinue per ANESTHESIA - _FISH OIL 3 DAYS PRIOR TO SURGERY, Date to take last dose_08/21/23_ Please no make-up, nail jordanian, hairspray, perfume, deodorant, or body powder the day of surgery. No jewelry (including any body piercings) or valuables the day of surgery, leave them at home. Please take a shower or bath the night before, or the morning of, surgery with an antibacterial soap. Wear comfortable, loose fitting clothing. - Jewelry must be removed prior to entering the operating room. Rings and piercings that are not removed may be cut off. - The hospital will not accept responsibility for valuables. - Please leave all valuables, including medications, at home the day of surgery. If you are going home after surgery, a licensed experienced truck driver must drive you home. - NO public transportation without another adult if you receive anesthesia. - We recommend that an adult stay with you for 24 hours following discharge. - We also recommend that you do not drive, make important decision, drink alcoholic beverages, or take any drugs that were not prescribed by your health care provider for at least 24 hours after your discharge time. Follow any additional instructions given to you from your surgeon. If you or anyone in your household have experienced Covid symptoms in the past week, please notify your surgeon or the nurse liaison at the phone number below for possible testing. Instructions given to _PATIENT_and asked if any additional questions and then verbalized understanding. Patient advised to call surgeon office or pre surgery nurse liaison [phone] if any additional questions.
[2023-08-03 12:19] VITALS: BP 148/78; PULSE 68; RESP 18; TEMP 37.1; O2SAT 100; BMI 38.2
[2023-08-25] VITALS (13 sets, daily range): BP systolic 108–142; BP diastolic 59–85; PULSE 67–89; RESP 12–16; TEMP 36.2–37.1; O2SAT 94–100
--- NOTE | ~2023-08-25 | XR_ITS ---
EXAMINATION: XR hip RT min 2V DATE: 08/25/2023 11:46 INDICATION: Right hip arthroplasty. Postop. TECHNIQUE: 2 views of right hip were obtained. COMPARISON: Right hip radiographs 08/12/2023 FINDINGS: There is a total right hip arthroplasty in near-anatomic alignment. No fracture. There is g as in the soft tissues, consistent with recent surgery. IMPRESSION: 1. Total right hip arthroplasty in near-anatomic alignment. Reviewed, dictated and finalized at location A. E MOUNTER
[2023-08-25] MEDS: ACETAMINOPHEN 500 MG TABLET 1000 MG PO ×2 (07:04→20:57)
[2023-08-25] MEDS: LACTATED RINGERS 1,000 ML 30 ML IV CONT ×2 (07:15→11:17)
--- NOTE | 2023-08-25 07:16 | WPDANESEPPF ---
Anes - Initial Pre Proc Eval Procedure: Operation Date: 08/25/23 08:30 Proposed Procedures p Right Total Hip Arthroplasty - Bud Rowan MD Date/Time: 08/25/23 07:16 Surgeon: Bud Rowan MD Pre Op Diagnosis: primary oa right hip Patient Data Age: 63 Gender: F Height: 1.63 m Weight: 101.1 kg Last Vital Signs Temp 37.1 C 08/03/23 12:19 Pulse 68 08/03/23 12:19 Resp 18 08/03/23 12:19 BP 148/78 H 08/03/23 12:19 Pulse Ox 100 08/03/23 12:19 O2 Del Method Room Air 08/03/23 12:19 Allergies Allergy/AdvReac Type Severity Reaction Status Date / Time No Known Allergies Allergy Verified 08/25/23 07:19 Home Medications Medication Instructions Recorded Confirmed Type diazepam 2 mg tablet (Valium) 2 mg PO BID PRN dizziness or 02/09/23 08/12/23 Rx vertigo #10 tabs cholecalciferol (vitamin D3) 10 10 mcg PO DAILY 04/15/23 08/12/23 History mcg (400 unit) capsule omega 0-itl-gkm-fish oil 60 mg-90 1 cap PO DAILY 04/15/23 08/12/23 History mg-500 mg capsule (Fish Oil) lisinopril 20 1 tablet PO DAILY #90 tabs 06/12/23 08/12/23 Rx mg-hydrochlorothiazide 12.5 mg tablet Patient hx anesthesia problems: none Family hx anesthesia problems: none Results Review: All pre-operative results and documents have been reviewed as part of the pre-operative evaluation. [facility] Past Medical History Medical History (Updated 08/25/23 @ 07:16 by Bao Dunn MD) History of vaginal delivery x 2 Hypertension Left knee pain Obesity Plantar fasciitis of left foot Surgical History Surgical History History of arthroscopic knee surgery History of cholecystectomy History of endometrial ablation History of laminectomy History of lumpectomy History of tubal ligation Hx of augmentation mammoplasty Family History Family History Father Hypertension Family history of elevated blood lipids Patient's father is Arthritis Mother Family history of elevated blood lipids, Onset Age: 75 Arthritis Other Family history of arthritis Social History Social History Smoking status: Never smoker Second hand tobacco smoke exposure: No Additional smoking assessment comments: PT DENIES ALL FORMS OF TOBACCO USE Alcohol intake: current Drinks per week: 2 Substance use: current Substance use type: marijuana Other substance usage details: 5MG GUMMY FOR SLEEP Last use: 08/02/23 PM Lack of Transportation: No Lack of Food: Never True Current Housing: I Have Housing Concerned About Future Housing: No Difficulty Paying Gas/Electric Bills: No Difficulty Paying for Meds: No Currently Unemployed: No Education: High School Diploma/GED Difficulty w/ Childcare or Family Care: No Living arrangements: with friend(s) Additional living arrangements comments: LIVES WITH SO Occupation/Education: occupation Gender identity (if verbalized by the patient): Female Spiritual care concerns: No Anes - Eval Final PreProcedure Day of Procedure 08/25/23 07:16 Patient weight: obese Heart: regular rate and rhythm Lungs: clear to auscultation Airway: Mallampati scale class II Neurological: alert and oriented Last oral intake: >/= 8 hours ASA classification: II Emergent: no Anesthetic plan: proceed Anesthesia type and monitoring: general ETT and standard monitoring Results Review: All pre-operative results and documents have been reviewed as part of the pre-operative evaluation. Informed Consent: The patient's anesthetic plan and its attendant risks and benefits were discussed with the patient/family/POA. Questions were solicited and answers provided to the satisfaction of the patient/family/POA.
[2023-08-25] MEDS: TRANEXAMIC ACID 1,000MG/ISO100 1,000 MG/100 ML BAG 200 MG IVPB (08:16)
--- NOTE | 2023-08-25 08:44 | WPDHPUPDATE1 ---
History and Physical Update Update Date/Time: 08/25/23 08:44 History and Physical has been reviewed, including an updated exam of the patient. There are NO changes in the patient's condition. Risks, benefits, and alternatives have been discussed and questions answered. Patient agrees to proceed with procedure.
[2023-08-25] MEDS: ceFAZolin 2 GM/D5W 50 ML 2 GM/50 ML BAG IVPB ×2 (08:50→16:27)
[2023-08-25] MEDS: fentaNYL CITRATE INJ (*CRX) 100 MCG/2 ML VIAL 25 MCG IV PUSH ×6 (11:48→12:10)
--- NOTE | 2023-08-25 12:45 | PC.NURSE ---
This patient, Kimi Davison, was admitted to [facility] Surg Room 326-01. Patient/family oriented to hospital policies and general routines including ID bracelet, bed and alarms, visiting hours, pain management, procedures, bathroom and other care routines, personal items, smoking policy, room service/diet, and visiting hours. Information on how to activate the Rapid Response Team has been discussed. Patient/Family are encouraged to report perceived risks to care and to ask questions if they do not understand what they are told or what they should do.
[2023-08-25] MEDS: ONDANSETRON INJ 4 MG/2 ML VIAL IV PUSH ×2 (13:51→17:21)
[2023-08-25] MEDS: SODIUM CHLORIDE 0.9% IV 500 ML IV CONT (16:01)
[2023-08-25] MEDS: MECLIZINE HCL 25 MG TABLET PO (17:17)
[2023-08-25] MEDS: FAMOTIDINE 20 MG TABLET PO (20:57)
[2023-08-25] MEDS: MELOXICAM 7.5 MG TABLET PO (20:57)
[2023-08-25] MEDS: ASPIRIN 81 MG ENTERIC TABLET PO (20:57)
[2023-08-26] VITALS: BP 124/70; PULSE 78; RESP 16; TEMP 36.7; O2SAT 99
[2023-08-26] MEDS: traMADol HCL (*CRX) 50 MG TABLET PO (00:59)
[2023-08-26] MEDS: CYCLOBENZAPRINE HCL 10 MG TABLET PO (01:00)
[2023-08-26] MEDS: ceFAZolin 2 GM/D5W 50 ML 2 GM/50 ML BAG IVPB ×2 (01:01→09:18)
[2023-08-26 04:00] VITALS: BP 119/78; PULSE 73; RESP 14; TEMP 36.2; O2SAT 99
[2023-08-26] MEDS: ACETAMINOPHEN 500 MG TABLET 1000 MG PO (05:30)
[2023-08-26 06:41] LABS: Basophils Percent Auto 0.3 % (0.2-1.2); Hematocrit 34.9 % (37.0-47.0); Hemoglobin 11.2 g/dL (12.0-15.0); Immature Granulocyte Absolute 0.05 K/mm3 (0.00-0.031); Immature Granulocyte Percent A 0.5 % (0-0.5); Lymphocytes Absolute Auto 0.95 K/mm3 (0.9-3.2); Lymphocytes Percent Auto 9.9 % (18.3-44.2); Mean Corpuscular HGB Conc 32.1 g/dl (32-36); Mean Corpuscular Hemoglobin 30.9 pg (26-34); Mean Corpuscular Volume 96.1 fl (80-100); Mean Platelet Volume 8.7 fl (7.4-10.4); Monocytes Absolute Auto 0.9 K/mm3 (0.1-0.6); Monocytes Percent Auto 9.1 % (2.6-8.5); Neutrophils Absolute Auto 7.7 K/mm3 (1.3-6.7); Neutrophils Percent Auto 80.2 % (45.5-73.1); Platelet Count Result 254 k/mm3 (150-375); Red Blood Count 3.63 M/mm3 (4.2-5.4); White Blood Count 9.6 K/mm3 (4.5-10.0)
[2023-08-26 06:49] LABS: Anion Gap 8 mmol/L (8-16); Blood Urea Nitrogen 20 mg/dL (7-17); Calcium 8.9 mg/dL (8.4-10.2); Carbon Dioxide 26 mmol/L (22-30); Chloride 103 mmol/L (98-107); Estimated CRCL calculation 65 ml/min; Estimated Glomerular Filt Rate > 60; Glucose 108 mg/dL (65-110); Potassium 3.7 mmol/L (3.4-5.0); Sodium 137 mmol/L (137-145)
[2023-08-26 08:00] VITALS: BP 107/69; PULSE 72; RESP 14; TEMP 36.4; O2SAT 95
[2023-08-26] MEDS: polyethylene glycoL 3350 17 GM POWD.PACK PO (08:25)
[2023-08-26] MEDS: hydroCHLOROthiazide 12.5 MG CAPSULE PO (08:26)
[2023-08-26] MEDS: FAMOTIDINE 20 MG TABLET PO (08:26)
[2023-08-26] MEDS: ASPIRIN 81 MG ENTERIC TABLET PO (08:26)
[2023-08-26] MEDS: MELOXICAM 7.5 MG TABLET PO (08:26)
[2023-08-26] MEDS: SENNA/DOCUSATE SODIUM TABLET 2 TAB PO (08:26)
[2023-08-26] MEDS: lisinopriL 20 MG TABLET PO (08:26)
[2023-08-26] MEDS: oxyCODONE HCL (*CRX) 5 MG TAB IR PO (08:33)
--- NOTE | 2023-08-26 08:36 | PM.DS ---
DS: Admitting Diagnosis Discharge Date 08/26/23 Admitting Diagnosis OA Right hip DS: Discharge Diagnosis Discharge Diagnosis (1) Status post total hip replacement, right: Code(s): Z96.641 - Presence of right artificial hip joint Status: Acute Assessment and Plan: Postop day 1: Total hip arthroplasty. Patient tolerated procedure well. No complications. Pain manageable with pain medication. No numbness or tingling. We had a lengthy discussion regarding postoperative wound care, limitations, expectations, and exercises. Patient shows good understanding. Patient has had initial physical therapy and is tolerating it well. DVT prophylaxis: 81 mg baby aspirin b.i.d. for 14 days. Short frequent walks. Pain medication: Percocet. Meloxicam. Patient has followup appointment with Dr. Rowan in 3 weeks DS: Summary Hospital Course Reason for hospitalization: Total hip arthroplasty Hospital Course: Patient tolerated procedure well. Has had initial PT/OT and made good progress. Status at Discharge Functional status at discharge: uses cane/walker Overall status at discharge: patient is progressing back to baseline Time Spent with Patient Time attestation: Total time spent providing and/or coordinating discharge services: Exam Narrative: Overweight 63 y/o female. Resting comfortably in bed. Wearing compression socks bilaterally. Dressing dry and intact with no drainage. Moderate swelling. No ecchymosis. No erythema. No hematoma. Range of motion limited due to pain. Calf nontender. Thigh nontender. Neurologic status intact. No varicosities. Distal pulses palpable. DS: Data Data Completed and Pending Labs on day of discharge: Labs from last 24 hours 08/26/23 05:46 WBC 9.6 RBC 3.63 L Hgb 11.2 L Hct 34.9 L MCV 96.1 MCH 30.9 MCHC 32.1 RDW 13.0 Plt Count 254 MPV 8.7 Immature Gran % (Auto) 0.5 Neut % (Auto) 80.2 H Lymph % (Auto) 9.9 L [place] % (Auto) 9.1 H Eos % (Auto) 0.0 Baso % (Auto) 0.3 Lymph # (Auto) 0.95 [place] # (Auto) 0.9 H Eos # (Auto) 0.0 Baso # (Auto) 0.0 Abs Immat Gran (auto) 0.05 H Absolute Neuts (auto) 7.7 H Absolute Nucleated RBC 0.0 Nucleated RBC % 0.0 Sodium 137 Potassium 3.7 Chloride 103 Carbon Dioxide 26 Anion Gap 8 BUN 20 H Creatinine 0.90 Estim Creat Clear Calc 65 Estimated GFR > 60 Glucose 108 Calcium 8.9 Discharge Plan Discharge Patient Disposition: Home, Self-Care Discharge Instructions: See green instruction sheets Stand Alone Forms: General Discharge Instructions Follow-up/Referrals: Marbella Arguello PA [Physician Contract Agent] - Discharge Medications: New meloxicam 15 mg tablet 15 mg PO DAILY Qty: 30 0RF Rx Instructions: Cut in half. Take 1/2 in morning and 1/2 at night. Take with food. Stop if stomach upset. aspirin 81 mg tablet,delayed release (DR/EC) 81 mg PO BID 14 Days Qty: 28 0RF oxycodone-acetaminophen 5-325 mg tablet 1 - 2 tablet PO Q4-6H MDD 6 PRN (Reason: pain) Qty: 30 0RF Continued omega 1-anc-abw-fish oil [Fish Oil] 60-90-500 mg capsule 1 cap PO DAILY cholecalciferol (vitamin D3) 10 mcg (400 unit) capsule 10 mcg PO DAILY diazepam [Valium] 2 mg tablet 2 mg PO BID PRN (Reason: dizziness or vertigo) Qty: 10 0RF lisinopril-hydrochlorothiazide 20-12.5 mg tablet 1 tablet PO DAILY Qty: 90 0RF
--- NOTE | 2023-08-26 10:26 | PC.NURSE ---
iv out, abx completed, gel packs with patient, pedal pulses palpable. denies pain. d/c papers gone over with patient, she denies any questions at this time. at bedside. all belongings returned. will be taken down by wheelchair, leaving by private car. PT/OT cleared to go.
--- NOTE | 2023-08-26 15:37 | W.PM.PROC2 ---
Procedure Note - Detailed Date of Procedure 08/25/23 Pre-op Diagnosis primary oa right hip Post-op Diagnosis Same Procedure Performed Right Total Hip Arthroplasty Surgeon Bud Rowan MD Merchandise Coordinator Marbella Arguello PA-C Anesthesia General Description of Procedure The patient was given preoperative antibiotics. A general anesthetic was administered. The patient was carefully placed in the lateral decubitus position on the PEG board. The shoulders and hips were carefully positioned for component and leg length positioning reference. The hip was prepped and draped in the usual sterile fashion. A longitudinal incision was created over the posterior aspect of the greater trochanter. Careful dissection was brought down through the deep fascia with electrocautery. A minimally invasive optimized posterior approach to the hip was performed. The short external rotators and capsule were taken down in an L-shaped capsulotomy. The tissue was tagged for later repair using number 2 high strength suture. The femoral neck was measured and taken in situ. The femoral head was removed. The acetabulum was carefully exposed. The inferior capsule was released. The labrum was resected. The acetabulum was sequentially reamed to the intended cup size. The cup was impacted into position with excellent press-fit. Typical anatomic landmarks, including the bony contact points as well as the inferior transverse acetabular ligament were used to confirm cup positioning with preoperative templating. Attention was turned to the femur, which was carefully exposed. The hip was reamed and then broached sequentially. Excellent press-fit was obtained with the broach. The hip was trialed. Measurements were utilized, including the lesser trochanter as well as the center of the femoral head and the tip of the trochanter, and excellent assessment of the offset and leg lengths were confirmed. The real component was impacted into position. Trialing confirmed appropriate leg length and offset with soft tissue balancing as well apparent feel of the leg, both at the knee and the heel. Soft tissues were assessed using the the iliotibial band. Reduction of the posterior capsule and external rotators were also used as a secondary assessment. The hip was copiously irrigated with pulsatile lavage antibiotic solution periodically throughout the procedure. The real components were then assembled and reduced. The hip was stable throughout typical maneuvers, including extension, external rotation to 70 degrees, the position of sleep as well as flexion to 90 degrees with internal rotation past 45 degrees. The shake test confirmed stability without impingement. Osteophytes were removed as necessary. The short external rotators and capsule were repaired back to the posterior trochanter through drill holes. The deep fascia was repaired with running number 2 Quill suture, followed by 0 Stratafix suture and 2-0 Stratafix suture in the dermis. Steri-Strips were placed on the skin, followed by a sterile silver occlusive dressing. There were no complications. Meticulous hemostasis was maintained with the AquaMantys device. The patient was brought to the recovery room in stable condition. There were no complications. Physician assistant golf course superintendent, Marbella Arguello PA-C, required for surgery; including patient positioning, draping, tissue retraction, maintaining instrument position, hip dislocation/ relocation, wound closure, and dressing placement. Implants The Accolade II hip stem, 127 degree size 4 , was utilized with excellent press-fit. The 50 mm Trident II acetabular component was impacted with excellent press-fit stability. The +2.5, 36 mm Biolox ceramic femoral head was utilized. Estimated Blood Loss 200 Drains No Packing No Pathology None sent Complications No immediate complications Condition Stable Disposition PACU [facility] Billing Surgery - Charge Forward: Surgery Billing
== END 2023-08-26 11:15 | disposition home or self-care (01) ==
LOC: ANHSURGERY 07:30 → ANH3MEDSUR 12:50
PROVIDERS: Physician Assistant Surgical; PCP Physician Assistant; Visit Provider Orthopaedic Surgery
PROC: (CPT 27130; principal; 2023-08-25 08:30)
DX: M16.11 Unilateral primary osteoarthritis, right hip (principal); I10 Essential (primary) hypertension; F12.90 Cannabis use, unspecified, uncomplicated; E66.9 Obesity, unspecified; Z68.37 Body mass index [BMI] 37.0-37.9, adult
CPT/HCPCS: 27130; 36415; 73502; 80048; 85025; 86850; 86900; 86901; 97110; 97116; 97161; 97165; 97530; 97535; A9270; C1776; J0171; J0690; J1100; J1170; J1885; J2250; J2270; J2371; J2405; J2704; J2795; J3010; J7040; J7120

== ENCOUNTER 2023-09-28 07:12 | Outpatient (CLI) | payer OTHER, SELFPAY ==
--- NOTE | ~2023-09-28 | MM_ITS ---
EXAMINATION: MM scrn karri implant BI w che HISTORY: Screening mammogram TECHNIQUE: Craniocaudal and mediolateral oblique 3-D tomosynthesis images with implant displacement a nd synthetic 2-D images were generated. Craniocaudal and mediolateral oblique views of the breasts wi thout implant displacement were obtained using full field digital mammography. CAD analysis was submi tted and interpreted. COMPARISON: 05/26/2022, 02/28/2021, 09/20/2019 bilateral implant screening mammogram examinations BREAST PARENCHYMAL COMPOSITION: The breasts are almost entirely fatty. FINDINGS: Status post bilateral augmentation mammoplasty. There is no evidence of suspicious mass, ca lcification, or architectural distortion to suggest malignancy in either breast. There has been no villafana spicious interval change. IMPRESSION: 1. No mammographic evidence of malignancy. 2. Recommend routine screening mammography in one year. BI-RADS Category 1: Negative Reviewed, dictated and finalized at location A. DING OPERATOR
== END 2023-09-28 07:13 | disposition home or self-care (01) ==
LOC: ANHIMG 07:14
PROVIDERS: PCP Physician Assistant; Visit Provider Obstetrics & Gynecology
DX: Z12.31 Encounter for screening mammogram for malignant neoplasm of breast (principal)
CPT/HCPCS: 77063; 77067

== ENCOUNTER 2023-10-13 07:40 | Outpatient (CLI) | payer OTHER, SELFPAY ==
--- NOTE | ~2023-10-13 | XR_ITS ---
AP view of the pelvis and AP and lateral views of the right hip Clinical history: Postoperative Findings: No acute fracture or dislocation is seen. Right hip arthroplasty is in place, without evide nce of hardware complication. Left hip joint space is preserved. SI joints are intact. Soft tissues a re unremarkable. Impression: No acute abnormality. Right hip arthroplasty in place. Reviewed, dictated and finalized at location M. STRIAL RELATIONS WORKER Impression: No acute abnormality. Right hip arthroplasty in place.
== END 2023-10-13 07:41 | disposition home or self-care (01) ==
PROVIDERS: PCP Physician Assistant; Visit Provider Physician Assistant Surgical
DX: Z96.641 Presence of right artificial hip joint (principal)
CPT/HCPCS: 73502

== ENCOUNTER 2024-01-08 00:44 | Day surgery (SDC) | payer OTHER, SELFPAY ==
[2023-12-30 09:45] VITALS: BMI 35.7
--- NOTE | 2024-01-06 10:12 | SUR.PREOP ---
Patient called regarding upcoming procedure. Voicemail left regarding appointment times.
[2024-01-08 06:52] VITALS: BP 121/80; PULSE 80; RESP 20; TEMP 36.5; O2SAT 100
[2024-01-08] MEDS: LACTATED RINGERS 1,000 ML 150 ML IV CONT (07:05)
--- NOTE | 2024-01-08 07:29 | WPDANESEPPF ---
Anes - Initial Pre Proc Eval Procedure: Operation Date: 01/08/24 08:00 Proposed Procedures p Screening Colonoscopy - Elmer Helton MD Date/Time: 01/08/24 07:29 Surgeon: Elmer Helton MD Pre Op Diagnosis: neoplasm screening Patient Data Age: 63 Gender: F Height: 1.63 m Weight: 95 kg Last Vital Signs Temp 97.7 F 01/08/24 06:52 Pulse 80 01/08/24 06:52 Resp 20 01/08/24 06:52 BP 121/80 01/08/24 06:52 Pulse Ox 100 01/08/24 06:52 O2 Del Method Room Air 01/08/24 06:52 Allergies Allergy/AdvReac Type Severity Reaction Status Date / Time No Known Allergies Allergy Verified 01/08/24 06:50 Home Medications Medication Instructions Recorded Confirmed Type diazepam 2 mg tablet (Valium) 2 mg PO BID PRN dizziness or 02/09/23 12/30/23 Rx vertigo #10 tabs lisinopril 20 1 tablet PO DAILY #90 tabs 09/18/23 12/30/23 Rx mg-hydrochlorothiazide 12.5 mg tablet cholecalciferol (vitamin D3) 10 10 mcg PO DAILY 12/07/23 12/30/23 History mcg (400 unit) capsule omega 4-jsy-scc-fish oil 300 1 cap PO DAILY 12/07/23 12/30/23 History mg-1,000 mg capsule (Fish Oil) Patient hx anesthesia problems: none Family hx anesthesia problems: none Results Review: All pre-operative results and documents have been reviewed as part of the pre-operative evaluation. [facility] Past Medical History Medical History History of vaginal delivery x 2 Hypertension Left knee pain Obesity Plantar fasciitis of left foot Surgical History Surgical History History of arthroscopic knee surgery History of cholecystectomy History of endometrial ablation History of laminectomy History of lumpectomy History of total right hip arthroplasty (~08/25/23) History of tubal ligation Hx of augmentation mammoplasty Family History Family History Father Hypertension Family history of elevated blood lipids Patient's father is Arthritis Mother Family history of elevated blood lipids, Onset Age: 75 Arthritis Other Family history of arthritis Social History Social History Smoking status: Never smoker Second hand tobacco smoke exposure: No Additional smoking assessment comments: PT DENIES ALL FORMS OF TOBACCO USE Alcohol intake: current Drinks per week: 2 Alcohol use details: socially Substance use: never Substance use type: does not use Other substance usage details: 5MG GUMMY FOR SLEEP Last use: 08/02/23 PM Lack of Transportation: No Lack of Food: Never True Current Housing: I Have Housing Concerned About Future Housing: No Difficulty Paying Gas/Electric Bills: No Difficulty Paying for Meds: No Currently Unemployed: No Education: High School Diploma/GED Difficulty w/ Childcare or Family Care: No Living arrangements: with family Additional living arrangements comments: LIVES WITH SO Occupation/Education: occupation Gender identity (if verbalized by the patient): Female Spiritual care concerns: No Anes - Eval Final PreProcedure Day of Procedure 01/08/24 07:29 Patient weight: obese Heart: regular rate and rhythm Lungs: clear to auscultation Airway: Mallampati scale class II Neurological: alert and oriented Last oral intake: >/= 8 hours ASA classification: III Emergent: no Anesthetic plan: proceed Anesthesia type and monitoring: general GIVS and standard monitoring Results Review: All pre-operative results and documents have been reviewed as part of the pre-operative evaluation. Informed Consent: The patient's anesthetic plan and its attendant risks and benefits were discussed with the patient/family/POA. Questions were solicited and answers provided to the satisfaction of the patien
--- NOTE | 2024-01-08 08:03 | PM.HPGS ---
History of Present Illness History of Present Illness Consent: Risks, benefits, and alternatives have been discussed and questions answered. Patient agrees to proceed with procedure. Chief complaint: neoplasm screening Narrative: Kimi Davison is a 63 year old female here for screening colonoscopy, last one 10 years ago Review of Systems Review of Systems: All systems reviewed & are unremarkable except as noted in HPI and below PMFSH Past Medical History Medical History (Updated 01/08/24 @ 08:03 by Elmer Helton MD) Colon cancer screening History of vaginal delivery x 2 Hypertension Left knee pain Obesity Plantar fasciitis of left foot Surgical History Surgical History History of arthroscopic knee surgery History of cholecystectomy History of endometrial ablation History of laminectomy History of lumpectomy History of total right hip arthroplasty (~08/25/23) History of tubal ligation Hx of augmentation mammoplasty Family History Family History Father Hypertension Family history of elevated blood lipids Patient's father is Arthritis Mother Family history of elevated blood lipids, Onset Age: 75 Arthritis Other Family history of arthritis Social History Social History Smoking status: Never smoker Second hand tobacco smoke exposure: No Additional smoking assessment comments: PT DENIES ALL FORMS OF TOBACCO USE Alcohol intake: current Drinks per week: 2 Alcohol use details: socially Substance use: never Substance use type: does not use Other substance usage details: 5MG GUMMY FOR SLEEP Last use: 08/02/23 PM Lack of Transportation: No Lack of Food: Never True Current Housing: I Have Housing Concerned About Future Housing: No Difficulty Paying Gas/Electric Bills: No Difficulty Paying for Meds: No Currently Unemployed: No Education: High School Diploma/GED Difficulty w/ Childcare or Family Care: No Living arrangements: with family Additional living arrangements comments: LIVES WITH SO Occupation/Education: occupation Gender identity (if verbalized by the patient): Female Spiritual care concerns: No Meds Home Medications and Allergies Home Medications Medication Instructions Recorded Confirmed Type diazepam 2 mg tablet (Valium) 2 mg PO BID PRN dizziness or 02/09/23 12/30/23 Rx vertigo #10 tabs lisinopril 20 1 tablet PO DAILY #90 tabs 09/18/23 12/30/23 Rx mg-hydrochlorothiazide 12.5 mg tablet cholecalciferol (vitamin D3) 10 10 mcg PO DAILY 12/07/23 12/30/23 History mcg (400 unit) capsule omega 3-djk-zer-fish oil 300 1 cap PO DAILY 12/07/23 12/30/23 History mg-1,000 mg capsule (Fish Oil) Allergies Allergy/AdvReac Type Severity Reaction Status Date / Time No Known Allergies Allergy Verified 01/08/24 06:50 Vital Signs Vital Signs - 24 hr 01/08/24 06:52 Temperature 97.7 F Pulse Rate 80 Respiratory Rate 20 Blood Pressure 121/80 Pulse Oximetry 100 Oxygen Delivery Room Air Exam Const: General: comfortable and no acute distress HENMT: Face/Nose/Sinus: Normal nares present Eyes: General: appearance normal, both eyes and all related structures Neck: Neck: no JVD Resp: Auscultation: clear to auscultation bilaterally Cardio: Rate: regular rate Rhythm: regular rhythm GI: Inspection: non-distended GI Palp: Yes Soft to palpation Skin: General skin exam: normal color Neuro: General: gait normal Speech: normal speech Extrem: General: normal to inspection Psych: Mental Status: mental status grossly normal Assessment and Plan Assessment and plan (1) Colon cancer screening: Code(s): Z12.11 - Encounter for screening for malignant neoplasm of colon Status: Acute Assessment a
[2024-01-08 08:25] VITALS: BP 113/69; PULSE 59; RESP 17; O2SAT 100
[2024-01-08 08:35] VITALS: BP 120/68; PULSE 59; RESP 16; O2SAT 100
[2024-01-08 08:45] VITALS: BP 121/75; PULSE 63; RESP 18; O2SAT 100
== END 2024-01-08 08:56 | disposition home or self-care (01) ==
PROVIDERS: PCP Physician Assistant; Visit Provider Internal Medicine Gastroenterology
PROC: 0DJD8ZZ Inspection of Lower Intestinal Tract, Via Natural or Artificial Opening Endoscopic (ICD-10-PCS; CPT 45378; principal; 2024-01-08 08:00)
DX: Z12.11 Encounter for screening for malignant neoplasm of colon (principal); K64.8 Other hemorrhoids; I10 Essential (primary) hypertension; E66.9 Obesity, unspecified; Z68.35 Body mass index [BMI] 35.0-35.9, adult
CPT/HCPCS: 45378; J2001; J2704; J7120

== ENCOUNTER 2024-01-19 06:57 | Outpatient (CLI) | payer OTHER, SELFPAY ==
[2024-01-19 07:29] LABS: Basophils Percent Auto 0.6 % (0.2-1.2); Eosinophils Absolute Auto 0.2 K/mm3 (0-0.3); Eosinophils Percent Auto 3.6 % (0-4.4); Hematocrit 42.4 % (37.0-47.0); Hemoglobin 13.7 g/dL (12.0-15.0); Immature Granulocyte Absolute 0.02 K/mm3 (0.00-0.031); Immature Granulocyte Percent A 0.3 % (0-0.5); Lymphocytes Absolute Auto 2.01 K/mm3 (0.9-3.2); Lymphocytes Percent Auto 30.1 % (18.3-44.2); Mean Corpuscular HGB Conc 32.3 g/dl (32-36); Mean Corpuscular Hemoglobin 30.4 pg (26-34); Mean Corpuscular Volume 94.2 fl (80-100); Mean Platelet Volume 8.4 fl (7.4-10.4); Monocytes Absolute Auto 0.5 K/mm3 (0.1-0.6); Monocytes Percent Auto 7.8 % (2.6-8.5); Neutrophils Absolute Auto 3.8 K/mm3 (1.3-6.7); Neutrophils Percent Auto 57.6 % (45.5-73.1); Platelet Count Result 325 k/mm3 (150-375); Red Cell Distribution Width 12.9 % (11.5-14.5); White Blood Count 6.7 K/mm3 (4.5-10.0)
[2024-01-19 07:48] LABS: Alanine Aminotransferase 23 U/L (6-35); Albumin Level 4.2 g/dL (3.5-5.1); Alkaline Phosphatase 108 U/L (38-126); Anion Gap 7 mmol/L (4-12); Aspartate Amino Transferase 27 U/L (14-36); Bilirubin,Total 0.5 mg/dL (0.2-1.3); Blood Urea Nitrogen 27 mg/dL (7-17); Calcium 9.8 mg/dL (8.4-10.2); Carbon Dioxide 27 mmol/L (22-30); Chloride 106 mmol/L (98-107); Cholesterol 246 mg/dL (0-200); Estimated Glomerular Filt Rate 56; Glucose 91 mg/dL (65-110); HDL Direct 70 mg/dL; Potassium 4.2 mmol/L (3.4-5.0); Sodium 140 mmol/L (137-145); Triglycerides 135 mg/dL (<150)
[2024-01-19 07:59] LABS: LDL Cholesterol Direct 129 mg/dL
[2024-01-19 08:51] LABS: Folic Acid 8.2 ng/mL (2.76->20)
== END 2024-01-19 06:58 | disposition home or self-care (01) ==
LOC: ANHLAB 06:58
PROVIDERS: PCP Physician Assistant; Visit Provider Physician Assistant
DX: Z00.00 Encounter for general adult medical examination without abnormal findings (principal)
CPT/HCPCS: 36415; 80053; 80061; 82607; 82746; 84443; 85025

== ENCOUNTER 2024-02-09 14:27 | Outpatient (RCR) | payer OTHER, SELFPAY ==
--- NOTE | 2024-02-09 15:17 | OPREHPOC ---
Outpatient Therapy Plan of Care This is a Multidisciplinary Plan of Care that may contain components documented by all disciplines (PT, OT, and ST.) PT Problem 1 PT Problem #1 Knowledge Deficit PT Goal 1 Goal *indep with HEP Target Visit 8 PT Problem 2 PT Problem #2 Pain PT Goal 1 Goal * no pain in L knee with increased activity level Target Visit 8 PT Problem 3 PT Problem #3 Impaired Flexibility PT Goal 1 Goal *increase L anterior hip-quad length with prone knee flexion to 120' Target Visit 8 PT Problem 4 PT Problem #4 Impaired Strength PT Goal 1 Goal *increase strength of L knee to improve stability to knee: 1* standing green theraband exercises x 20 reps 2* single leg standing x 20 seconds with good stability
--- NOTE | 2024-02-09 15:17 | PTOPEVAL1 ---
Assessment and note entered by Dejah Alvarado, PT Evaluation Information Assessment Status Evaluation Diagnosis L knee OA Onset January 11, 2024 Subjective Information gradual increase in pain, to the point where felt she needed to see dr about it; x ray of L knee: moderate to severe tricompartmental degenerative changes. 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 Reported Pain Level Pain Score Self Report Additional Pain Score Comments prior to injection ; with moving leg wrong, more pain; since injection NO Pain Assessment PT Clinical Summary Kimi has the diagnosis of L knee OA. Since the knee injection on 01-20-24, she has not had any pain in her knee. She would like some exercises to do and feels like she does not need any therapy treatments for her knee. With the evaluation, she has good ROM and strength of her L knee and hip; decreased flexibility of anterior hip-quad with prone knee flexion and good gait pattern. There is not any tenderness to touch. She is motivated and active. Issued her mat and standing theraband exercises; she performed without any issues. She is to do the HEP and call if there are any further needs or issues that arise in the next 4 weeks. Plan of Care Interventions Electrical Stimulation,Hot Pack/Cold Pack,Manual Therapy,Neuro Re-education,Patient Education,Therapeutic Activities,Therapeutic Exercise,Ultrasound,Other Other Interventions taping PT Services Indicated Yes Treatment Frequency and 0-2x/wk for 4 weeks Duration These treatments will address the objective and functional deficits as defined above. The patient will be advanced safely and appropriately in order
--- NOTE | 2024-03-09 10:14 | PTOPDC ---
Assessment and note entered by Dejah Alvarado, PT PT Discharge Assessment Status Discharge - Pt Not Present Diagnosis L knee OA Onset January 11, 2024 Subjective Information pt was not seen this date Assessment PT Clinical Summary Kimi received the PT evaluation and HEP. Additional therapy was not needed; she did not call for any further treatment sessions. Discharge PT. The goals were not addressed. Plan of Care PT Services Indicated No
== END 2024-03-09 11:07 | disposition home or self-care (01) ==
LOC: ANHPT 14:27
PROVIDERS: PCP Physician Assistant; Visit Provider Physician Assistant Surgical
DX: M17.12 Unilateral primary osteoarthritis, left knee (principal)
CPT/HCPCS: 97110; 97161

== ENCOUNTER 2025-01-26 08:16 | Outpatient (CLI) | payer OTHER, SELFPAY ==
--- OUTSIDE RECORDS SUMMARY | 2025-01-26 08:28 | XMS_ITS | Clinical Summary ---
Author Organization [facility] Address [address] [place] [id number] Care Team Providers Care Sanitarian Aide Name Role Phone Unavailable Primary Care Provider Unavailabl e Social History Tobacco Use Types Packs/Day Years Used Date Smoking Tobacco: Never Assessed Comments Unknown Sex and Gender Information Value Date Recorded Sex Assigned at Not on file Legal Sex Female 5:24 PM CDT Gender Identity Not on file Sexual Orientation Not on file Plan of Treatment Health Maintenance Due Date Last Done Comments Cervical Cancer Screening Pa p Smear (Age 30 to 64) Every 3 Years 1961 Colorectal Cancer Screening Colonoscopy (10 Years) 1961 Annual Physical 1964 Hepatitis C 1979 DTaP, Tdap and Td Vaccines ( 1 - Tdap) 1980 Cervical Cancer Screening Pa p with HPV Testing (Age 30 to 64) Every 5 Years 1991 Cervical Cancer Screening with HPV 1991 Mammogram Screening 2001 Pneumococcal Vaccine: 50+ Ye ars (1 of 1 - PCV) 2011 Zoster Vaccines (1 of 2) 2011 COVID-19 Vaccine (2023-2 5 season) 2024 RSV Immunization or 60+ Years (1 - 1-dose 75+ series) 2036 Meningococcal B Vaccine Aged Out No l onger eligible based on patient's age to complete this topic Meningococcal Vaccine Aged Out No travis jamari eligible based on patient's age to complete this topic RSV Immunizations Under 20 Months Aged Out No longer eligible based on patient's age to complete this topic
--- OUTSIDE RECORDS SUMMARY | 2025-01-26 08:28 | XMS_ITS | Clinical Summary ---
Author Organization [facility] Address [address] [place] [address] Care Team Providers Care Special Education Educational Assistant Name Role Phone Beau Alamo MD Primary Care Provider +1- [phone] Source Comments [facility],non-owned Affiliates and Associated Physician Practices is amultiple site organization consisting of ambulatory clinics and hospital sitesin [place], [place], [place] and [place]. This disclosure is being madepursuant to the Care Everywhere program and may not contain all information available regarding this patient. Last updated 18.[facility] Allergies No known active allergies Medications * Be aware that medications may not be up to date on this document. Alwaysverify current medications with the patient. lisinopril-hydro CHLOROthiazide (PRINZIDE; ZESTORETIC) 20-12.5 MG tablet Take 1 tablet by mouth once daily 01/29/2022 Active Active Problems No known active problems Social History Tobacco Use Types Packs/Day Years Used Date Smoking Tobacco: Never Smokeless Tobacco: Never Alcohol Use Standard Drinks/Week Comments Yes 1 (1 standard drink = 0.6 oz pur e alcohol) Comments Unknown Sex and Gender Information Value Date Recorded Sex Assigned at Not on file Legal Sex Female 7:58 AM CDT Gender Identity Not on file Sexual Orientation Not on file Last Filed Vital Signs Vital Sign Reading Time Taken Comments Blood Pressure 151/88 02/20/2022 1:22 PM CDT Pulse 69 02/20/2022 1:22 PM CDT Temperature - - Respiratory Rate - - Oxygen Saturation - - Inhaled Oxygen Concentration - - Weight 90.7 kg (200 lb) 02/20/2022 1:22 PM CDT Height 165.1 cm (5' 5 ) 02/20/2022 1:22 PM CDT Body Mass Index 33.28 02/20/2022 1:22 PM CDT Plan of Treatment Health Maintenance Due Date Last Done Comments COLOGUARD (AGES 45-75) - COL ON CA SCREENING 1961 COLON MONITORING 1961 COLONOSCOPY - COLON CA SCREENING 1961 CT COLONOGRAPHY - COLON CA SCREENING 1961 Colorectal Cancer Screening 1961 FIT - COLON CA SCREENING 1961 FLEX SIG - COLON CA SCREENING 1961 LIPID TESTING 1961 MAMMOGRAM 1961 PAP SMEAR 1961 HIV SCREENING 1976 HEPATITIS C SCREENING 03/09/1979 DTAP/TDAP/TD VACCINES (1 - Tdap) 1980 PNEUMOCOCCAL VACCINE 50+ (1 of 1 - PCV) 2011 ZOSTER VACCINE (1 of 2) 2011 SCREENING FOR DIABETES 02/20/2022 COVID-19 VACCINE (1 - 2023-2 5 season) 2024 DEPRESSION SCREENING 10/12/2024 INFLUENZA VACCINE (Season Ended) 2025 Respiratory Syncytial Virus (RSV) Vaccine Pt: or over 60 yrs (1 - 1-dose 75+ series) 2036 HEPATITIS B VACCINE Aged Out No longe r eligible based on patient's age to complete this topic HIB VACCINE Aged Out No longer eligi ble based on patient's age to complete this topic HPV VACCINE Aged Out No longer eligi ble based on patient's age to complete this topic MENINGOCOCCAL (Group B) VACC INE SHARED DECISION-MAKING Aged Out No longer eligibl e based on patient's age to complete this topic MENINGOCOCCAL GROUPS A/C/Y/W VACCINE Aged Out No longer eligible b ased on patient's age to complete this topic Insurance [facility] Care Teams Special Education Educational Assistant Relationship Specialty Start Date End Date Beau Alamo MD [address] [place] [address] [address] [place] [address] PCP - General 01/02/22
[2025-01-26 09:09] LABS: Basophils Percent Auto 0.7 % (0.2-1.2); Eosinophils Absolute Auto 0.2 K/mm3 (0-0.3); Eosinophils Percent Auto 4.1 % (0-4.4); Hematocrit 41.7 % (37.0-47.0); Hemoglobin 14.1 g/dL (12.0-15.0); Immature Granulocyte Absolute 0.01 K/mm3 (0.00-0.031); Immature Granulocyte Percent A 0.2 % (0-0.5); Lymphocytes Absolute Auto 1.46 K/mm3 (0.9-3.2); Lymphocytes Percent Auto 31.8 % (18.3-44.2); Mean Corpuscular HGB Conc 33.8 g/dl (32-36); Mean Corpuscular Hemoglobin 31.6 pg (26-34); Mean Corpuscular Volume 93.5 fl (80-100); Mean Platelet Volume 8.6 fl (7.4-10.4); Monocytes Absolute Auto 0.3 K/mm3 (0.1-0.6); Monocytes Percent Auto 7.4 % (2.6-8.5); Neutrophils Absolute Auto 2.6 K/mm3 (1.3-6.7); Neutrophils Percent Auto 55.8 % (45.5-73.1); Platelet Count Result 280 k/mm3 (150-375); Red Blood Count 4.46 M/mm3 (4.2-5.4); Red Cell Distribution Width 12.9 % (11.5-14.5); White Blood Count 4.6 K/mm3 (4.5-10.0)
[2025-01-26 09:26] LABS: Alanine Aminotransferase 34 U/L (6-35); Albumin Level 4.4 g/dL (3.5-5.1); Alkaline Phosphatase 96 U/L (38-126); Anion Gap 8 mmol/L (4-12); Aspartate Amino Transferase 36 U/L (14-36); Bilirubin,Total 0.8 mg/dL (0.2-1.3); Blood Urea Nitrogen 23 mg/dL (7-17); Calcium 9.5 mg/dL (8.4-10.2); Carbon Dioxide 26 mmol/L (22-30); Chloride 104 mmol/L (98-107); Cholesterol 323 mg/dL (0-200); Estimated Glomerular Filt Rate 55; Glucose 90 mg/dL (65-110); HDL Direct 96 mg/dL; Potassium 4.2 mmol/L (3.4-5.0); Sodium 138 mmol/L (137-145); Triglycerides 161 mg/dL (<150)
[2025-01-26 09:37] LABS: LDL Cholesterol Direct 169 mg/dL
[2025-01-26 10:20] LABS: Vitamin D 25 Hydroxy 36.4 ng/mL
== END 2025-01-26 08:17 | disposition home or self-care (01) ==
LOC: ANHLAB 08:18
PROVIDERS: PCP Internal Medicine; Visit Provider Internal Medicine
DX: Z00.00 Encounter for general adult medical examination without abnormal findings (principal); I10 Essential (primary) hypertension; E78.5 Hyperlipidemia, unspecified; E55.9 Vitamin D deficiency, unspecified
CPT/HCPCS: 36415; 80053; 80061; 82306; 85025

== ENCOUNTER 2025-06-05 10:38 | Outpatient (CLI) | payer OTHER, SELFPAY ==
--- NOTE | ~2025-06-05 | XR_ITS ---
EXAMINATION: XR hand LT min 3V DATE: 06/05/2025 10:57 INDICATION: Left hand pain TECHNIQUE: 3 images of the left hand were obtained COMPARISON: None. FINDINGS: Bone mineralization is within normal limits. No fracture. No dislocation. Mild joint space narrowing in the first carpometacarpal joint. Mild soft tissue swelling about the left hand. IMPRESSION: 1. No fracture. 2. Mild joint space narrowing in the first carpometacarpal joint. If symptoms persist or worsen, consider a short-term follow-up study or additional imaging for further assessment. Reviewed, dictated and finalized at location Q. IMPRESSION: 1. No fracture. 2. Mild joint space narrowing in the first carpometacarpal joint. If symptoms persist or worsen, consider a short-term follow-up study or additio nal imaging for further assessment.
--- OUTSIDE RECORDS SUMMARY | 2025-06-05 11:29 | XMS_ITS | Clinical Summary ---
Author Organization [facility] Address [address] [place] [address] Care Team Providers Care Occupational Therapist Name Role Phone Beau Alamo MD Primary Care Provider +1- [phone] Source Comments [facility],non-owned Affiliates and Associated Physician Practices is amultiple site organization consisting of ambulatory clinics and hospital sitesin [place], [place], [place] and [place]. This disclosure is being madepursuant to the Care Everywhere program and may not contain all information available regarding this patient. Last updated 18.[facility] Allergies No known active allergies Medications * [...] 1:22 PM CDT Height 165.1 cm (5' 5) 02/20/2022 1:22 PM CDT Body Mass Index [...] SCREENING 1961 LIPID TESTING 1961 MAMMOGRAM 1961 HIV SCREENING 1976 HEPATITIS C SCREENING 03/09/1979 DTAP/TDAP/TD VACCINES (1 - Tdap) 1980 PNEUMOCOCCAL VACCINE 50+ (1 of 1 - PCV) 2011 ZOSTER VACCINE (1 of 2) 2011 SCREENING FOR DIABETES 02/20/2022 COVID-19 VACCINE (1 - 2023-2 5 season) 2024 DEPRESSION SCREENING 10/12/2024 INFLUENZA VACCINE (#1) 2025 Respiratory Syncytial Virus (RSV) Vaccine Pt: [...] patient's age to complete this topic Insurance [facility] Care Teams Occupational Therapist Relationship Specialty Start Date End Date Beau Alamo MD [address] [place] [address] [address] [place] [address] PCP - General 01/02/22
== END 2025-06-05 10:39 | disposition home or self-care (01) ==
PROVIDERS: PCP Internal Medicine; Visit Provider Plastic Surgery
DX: M18.12 Unilateral primary osteoarthritis of first carpometacarpal joint, left hand (principal)
CPT/HCPCS: 73130

== ENCOUNTER 2025-07-27 13:41 | Outpatient (CLI) | payer OTHER, SELFPAY ==
--- NOTE | 2025-07-27 14:00 | NEURO_ITS ---
Impression: # Non-diabetic complains of numbness of hands ? # Bilateral Carpal Tunnel Syndrome, right more than left. ? # Bilateral Ulnar Neuropathy across the elbow, right more than left. ? # Needle/ EMG exam mildly neurogenic. Nerve Conduction Studies ?Stim Site NR Peak (ms) P-T Amp (?V) Site1 Site2 Delta-P (ms) Dist (cm) Archie (m/s) Left Median Anti Sensory (2-3nd Digit) Wrist ? 3.9 22.6 Wrist 2-3nd Digit 3.9 14.0 36 Wrist ? 4.1 21.7 Wrist 2-3nd Digit 3.9 14.0 36 Right Median Anti Sensory (2-3nd Digit) Wrist ? 5.8 6.3 Wrist 2-3nd Digit 5.8 14.0 24 Wrist ? 6.0 7.7 Wrist 2-3nd Digit 5.8 14.0 24 Left Radial Anti Sensory (Base 1st Digit) Wrist ? 2.0 13.3 Wrist Base 1st Digit 2.0 0.0 Right Radial Anti Sensory (Base 1st Digit) Wrist ? 2.6 17.0 Wrist Base 1st Digit 2.6 0.0 Left Ulnar Anti Sensory (5th Digit) Wrist ? 2.8 28.3 Wrist 5th Digit 2.8 14.0 50 Right Ulnar Anti Sensory (5th Digit) Wrist ? 2.9 23.2 Wrist 5th Digit 2.9 14.0 48 ?Stim Site NR Onset (ms) O-P Amp (mV) Site1 Site2 Delta-0 (ms) Dist (cm) Archie (m/s) Left Median Motor (Abd Poll Brev) Wrist ? 4.1 2.6 Elbow Wrist 4.7 27.0 57 Elbow ? 8.8 2.9 Right Median Motor (Abd Poll Brev) Wrist ? 5.2 2.9 Elbow Wrist 4.1 27.0 66 Elbow ? 9.3 3.2 Left Ulnar Motor (Abd Dig Minimi) Wrist ? 3.4 6.8 A Elbow Wrist 5.3 28.0 53 A Elbow ? 8.7 5.7 B Elbow Wrist 3.8 22.0 58 B Elbow ? 7.2 5.8 Right Ulnar Motor (Abd Dig Minimi) Wrist ? 2.8 5.9 A Elbow Wrist 6.0 29.0 48 A Elbow ? 8.8 4.2 B Elbow Wrist 4.4 21.0 48 B Elbow ? 7.2 2.8 F Wave Studies ?NR F-Lat (ms) L-R F-Lat (ms) Left Median (Mrkrs) (Abd Poll Brev) ? 28.59 1.25 Right Median (Mrkrs) (Abd Poll Brev) ? 29.84 1.25 Left Ulnar (Mrkrs) (Abd Dig Min) ? 28.23 0.29 Right Ulnar (Mrkrs) (Abd Dig Min) ? 28.52 0.29 Electromyography ?Side Muscle Nerve Root Ins Act Fibs Amp Dur Recrt Comment Right 1stDorInt Ulnar C8-T1 Nml Nml Decr >12ms +1 Left 1stDorInt Ulnar C8-T1 Nml Nml Nml Nml +1 Right ABD Dig Min Ulnar C8-T1 Nml Nml Decr >12ms +1 Left ABD Dig Min Ulnar C8-T1 Nml Nml Nml Nml +1 Left Abd Poll Brev Median C8-T1 Nml Nml Nml Nml +1 Right Abd Poll Brev Median C8-T1 Nml Nml Decr >12ms +1 Right Abd Poll Long Radial (Post Int) C7-8 Nml Nml Nml Nml Nml Left Abd Poll Long Radial (Post Int) C7-8 Nml Nml Nml Nml Nml Left BrachioRad Radial C5-6 Nml Nml Nml Nml Nml Right BrachioRad Radial C5-6 Nml Nml Nml Nml Nml Right Ext Digitorum Radial (Post Int) C7-8 Nml Nml Nml Nml Nml Left Ext Digitorum Radial (Post Int) C7-8 Nml Nml Nml Nml Nml Left Ext Indicis Radial (Post Int) C7-8 Nml Nml Nml Nml Nml Right Ext Indicis Radial (Post Int) C7-8 Nml Nml Nml Nml Nml Left FlexPolLong Median (Ant Int) C7-8 Nml Nml Nml Nml Nml Right FlexPolLong Median (Ant Int) C7-8 Nml Nml Nml Nml Nml Right PronatorTeres Median C6-7 Nml Nml Nml Nml Nml Left PronatorTeres Median C6-7 Nml Nml Nml Nml Nml
--- OUTSIDE RECORDS SUMMARY | 2025-07-27 15:38 | XMS_ITS | Clinical Summary ---
Author Organization [facility] Address [address] [place] [address] Care Team Providers Care Solar Systems Designer Name Role Phone Unavailable Primary Care Provider [...] 2) 2011 COVID-19 Vaccine (2023-2 5 season) 2025 Influenza Adult (#1) 2025 RSV Immunization or 60+ Years (1 - [...]
--- OUTSIDE RECORDS SUMMARY | 2025-07-27 15:38 | XMS_ITS | Clinical Summary ---
Author Organization [facility] Address [address] [place] [address] Care Team Providers Care Mobile Ui Designer Name Role Phone Beau Alamo MD Primary Care Provider +1- [phone] [facility],non-owned Affiliates and Associated Physician Practices is amultiple site organization consisting of ambulatory clinics and hospital sitesin [place], [place], [place] and [place]. This disclosure is being madepursuant to the Care Everywhere program and may not contain all information available regarding this patient. Last updated 18.[facility] Allergies No known active allergies Medications * [...] of 2) 2011 SCREENING FOR DIABETES 02/20/2022 DEPRESSION SCREENING 10/12/2024 COVID-19 VACCINE (1 - 2023-2 5 season) 2025 INFLUENZA VACCINE (#1) 2025 Respiratory Syncytial Virus [...] Insurance [facility] Care Teams Mobile Ui Designer Relationship Specialty Start Date End Date Beau Alamo MD [address] [place] [address] [address] [place] [address] PCP - General 01/02/22
== END 2025-07-27 13:42 | disposition home or self-care (01) ==
PROVIDERS: PCP Internal Medicine; Visit Provider Plastic Surgery
DX: G56.03 Carpal tunnel syndrome, bilateral upper limbs (principal); G56.23 Lesion of ulnar nerve, bilateral upper limbs
CPT/HCPCS: 95886; 95911

== ENCOUNTER 2025-08-02 14:27 | Outpatient (CLI) | payer OTHER, SELFPAY ==
--- OUTSIDE RECORDS SUMMARY | 2025-08-02 18:34 | XMS_ITS | Clinical Summary ---
Author Organization [facility] Address [address] [place] [address] Care Team Providers Care Principal Technologist Name Role Phone Unavailable Primary Care Provider [...] Vaccines (1 of 2) 2011 COVID-19 Vaccine ( - 2023-2 5 season) 2025 Influenza Adult (#1) 2025 RSV Immunization or 60+ Years (1 - 1-dose 75+ series) 2036 Hepatitis A Vaccines Aged Out No long er eligible based on patient's age to complete this topic Meningococcal B Vaccine Aged Out No l onger eligible based on patient's age to complete this topic Meningococcal Vaccine Aged Out No travis jamari eligible based on patient's age to complete this topic RSV Immunizations Under 20 Months Aged Out No longer eligible based on patient's age to complete this topic
--- OUTSIDE RECORDS SUMMARY | 2025-08-02 18:34 | XMS_ITS | Clinical Summary ---
Author Organization [facility] Address [address] [place] [address] Care Team Providers Care Product Merchandiser Name Role Phone Beau Alamo MD Primary Care Provider +1- [phone] Source Comments [facility],non-owned Affiliates and Associated Physician Practices is amultiple site organization consisting of ambulatory clinics and hospital sitesin [place], [place], [place] and [place]. This disclosure is being madepursuant to the Care Everywhere program and may not contain all information available regarding this patient. Last updated 18.[facility] Allergies No known active allergies Medications * [...] patient's age to complete this topic Insurance [facility] Care Teams Product Merchandiser Relationship Specialty Start Date End Date Beau Alamo MD [address] [place] [address] [address] [place] [address] PCP - General 01/02/22
== END 2025-08-02 14:28 | disposition home or self-care (01) ==
LOC: ANHLAB 14:27
PROVIDERS: PCP Internal Medicine; Visit Provider Nurse Practitioner Obstetrics & Gynecology
DX: R30.0 Dysuria (principal)
CPT/HCPCS: 87077; 87086; 87186

== ENCOUNTER 2025-08-23 09:36 | Outpatient (CLI) | payer OTHER, SELFPAY ==
[2025-08-23 10:15] LABS: Anion Gap 7 mmol/L (4-12); Blood Urea Nitrogen 32 mg/dL (7-17); Calcium 9.5 mg/dL (8.4-10.2); Carbon Dioxide 27 mmol/L (22-30); Chloride 103 mmol/L (98-107); Estimated Glomerular Filt Rate 41; Glucose 83 mg/dL (65-110); Potassium 4.2 mmol/L (3.4-5.0); Sodium 137 mmol/L (137-145)
--- OUTSIDE RECORDS SUMMARY | 2025-08-23 10:29 | XMS_ITS | Clinical Summary ---
Author Organization [facility] [employer] Address [address] [place] [address] Care Team Providers Care Candle Molder Machine Name Role Phone Beau Alamo MD Primary Care Provider [phone]- [phone] [facility],non-owned Affiliates and Associated Physician Practices is amultiple site organization consisting of ambulatory clinics and hospital sitesin [place], [place], [place] and [place]. This disclosure is being madepursuant to the Care Everywhere program and may not contain all information available regarding this patient. Last updated 18.[facility] [employer] Allergies No known active allergies Medications * [...] patient's age to complete this topic Insurance [facility] Care Teams Candle Molder Machine Relationship Specialty Start Date End Date Beau Alamo MD [address] [place] [address] [address] [place] [address] PCP - General 01/02/22
--- OUTSIDE RECORDS SUMMARY | 2025-08-23 10:29 | XMS_ITS | Clinical Summary ---
Author Organization [facility] Address [address] [place] [id number] Care Team Providers Care Magnetic Prospecting Supervisor Name Role Phone Unavailable Primary Care Provider [...] Vaccines (1 of 2) 2011 COVID-19 Vaccine (2024-2 6 season) 2025 Influenza Adult (#1) 2025 RSV [...]
== END 2025-08-23 09:37 | disposition home or self-care (01) ==
LOC: ANHLAB 09:37
PROVIDERS: PCP Internal Medicine; Visit Provider Anesthesiology
DX: Z01.818 Encounter for other preprocedural examination (principal); N18.30 Chronic kidney disease, stage 3 unspecified
CPT/HCPCS: 36415; 80048

== ENCOUNTER 2025-08-28 10:12 | Day surgery (SDC) | payer OTHER, SELFPAY ==
[2025-08-16 10:46] VITALS: BMI 35.5
--- NOTE | 2025-08-28 07:04 | P.OP_ITS ---
Procedure Note - Detailed Date of Procedure 08/28/25 Pre-op Diagnosis Right Cubital and Carpal Tunnel Snydrome Post-op Diagnosis Same Procedure Performed right ectr and CuTR Surgeon Nany Alegre MD Cattle Care Worker Vikas Munoz PA-C Anesthesia MAC Description of Procedure INFORMED CONSENT: The patient was seen and examined and marked in the pre-op area.? The patient signed the consent form. PROCEDURE IN DETAIL:The patient taken back to OR on the stretcher in supine position. Time out performed with anesthesia, surgeon and staff agreeing on patient's name site and surgery to be performed SCDs were placed on the lower extremities and inflated. A tourniquet was placed on {right} upper extremity and antibiotics given IV After anesthesia administered sedation I injected {10}cc 1%lido with epi and 0.5% marcaine plain at the operative sites The?{right upper extremity}?was prepped and draped in sterile fashion the??{right upper extremity} was? exsanguinated with Esmarch bandage and tourniquet inflated to 250mmHg I made a transverse incision in the {right} volar distal wrist crease through skin and dermis with 15 blade scalpel.? Littler scissors spread down to antebrachial fascia. A small incision was made in antebrachial fascia allowing access to Carpal tunnel. I proceeded with sequential dilation staying in line with the ring finger and hugging the hook of the hamate.? I then used the synovial elevator to free any adhesions from the underside of the transverse carpal ligament. Next I was able to insert the Microaire endoscopic carpal tunnel device with direct visualization of the transverse fibers on the monitor and proceeded with complete segmental retrograde release of the ligament in its entirety.? I irrigated with normal saline and closed with 4-0 monocryl for dermis and subcuticular closure. I next proceeded with making a longitudinal incision between two heads for flexor carpi ulnaris at end of {right} cubital tunnel with 15 blade scalpel.? Littler scissors were used to spread down to FCU fascia.? An incision was made in FCU fascia and ulnar nerve identified exiting cubital tunnel.? I proceeded with complete retrograde release of the cubital tunnel including 7cm proximal for the intermuscular septum.? The nerve appeared healthy with visible vaso nervorum.? There was no subluxation on full elbow range of motion. ? I irrigated with normal saline and closure with 3-0 vicryl adn 4-0 monocryl. The incisions were covered with Dermabond then 4x4s, evelin, and a posterior elbow and volar wrist splint for patient safety, security and comfort and secured with richard bandages after the tourniquet was let down noting the hand was warm and well perfused.? Patient awaken from anesthesia and transferred to recovery in stable condition Complications - none EBL- 1cc Disposition - home in stable condition Vikas Munoz PA-C was essential for positioning, retraction, closure and dressing placement. [facility] [place] - Charge Forward: Surgery Billing ([id number] same for vikas gale )
--- NOTE | 2025-08-28 07:04 | WPDHPUPDATE1 ---
History and Physical Update Update Date/Time: 08/28/25 07:04 Patient seen and examined in pre-operative holding area. No interval change in medical history or symptoms. Patient recalls previous discussion of benefits and alternatives to procedure. Continues to desire to proceed with right endoscopic possible open carpal tunnel release and right cubital tunnel release. Reviewed procedure, post-op expectations and risks including but not limited to bleeding, infection, injury to tendon/nerve/vessel, decreased hand function, stiffness, RSD, no change or worsening of symptoms. I discussed the possible use of assistants and their participation in the case. Patient stated understanding and signed the consent form wishing to proceed.
--- NOTE | 2025-08-28 10:35 | P.PNAN_ITS ---
Anes - Initial Pre Proc Eval Procedure: Operation Date: 08/28/25 12:00 Proposed Procedures p Right Endoscopic Carpal Tunnel Release, Possible Open Carpal Tunnel Release - Nany Alegre MD s Right Cubital Tunnel Release - Nany Alegre MD Date/Time: 08/28/25 10:35 Surgeon: Nany Alegre MD Pre Op Diagnosis: Right Cubital and Carpal Tunnel Snydrome Patient Data Age: 65 Gender: F Height: 1.6 m Weight: 91 kg Allergies Allergy/AdvReac Type Severity Reaction Status Date / Time No Known Allergies Allergy Verified 08/21/25 09:07 Home Medications ?Medication ?Instructions ?Recorded ?Confirmed ?Type cholecalciferol (vitamin D3) 10 10 mcg PO DAILY 08/16/25 History mcg (400 unit) capsule omega 9-yhn-bdj-fish oil 300 1 cap PO DAILY 12/07/23 1 10/16/24 History mg-1,000 mg capsule (Fish Oil) lisinopril 20 1 tablet PO DAILY #90 tabs 0 01/16/25 08/16/25 Rx mg-hydrochlorothiazide 12.5 mg tablet scopolamine base 1 mg over 3 days 1 patch transdermal Q3D PRN motion 06/30/25 08/16/25 Rx transdermal patch (Transderm-Scop) sickness #4 ea diazepam 2 mg tablet (Valium) 2 mg PO BID PRN dizzines s or 07/01/25 08/16/25 Rx vertigo #10 tabs Lactobacillus acidophilus PO 08/21/25 History [Probiotic Acidophilus] Patient hx anesthesia problems: none Family hx anesthesia problems: none Results Review: All pre-operative results and documents have been reviewed as part of the pre- operative evaluation. [facility] Past Medical History Medical History Colon cancer screening Obesity Left knee pain Plantar fasciitis of left foot Hypertension History of vaginal delivery x 2 Surgical History Surgical History History of total right hip arthroplasty (~08/25/23) History of arthroscopic knee surgery History of laminectomy Hx of augmentation mammoplasty History of tubal ligation History of cholecystectomy History of lumpectomy History of endometrial ablation Family History Family History Father Hypertension Family history of elevated blood lipids Patient's father is Arthritis Stomach cancer Mother Family history of elevated blood lipids, Onset Age: 75 Arthritis Other Family history of arthritis Social History Social History (Updated 08/21/25 @ 09:10 by Sushma Bassett) Social History: Caffeine-coffee occasionally Smoking status: Never smoker Second hand tobacco smoke exposure: Yes Additional smoking assessment comments: PT DENIES ALL FORMS OF TOBACCO USE Alcohol intake: current Drinks per week: 2 Alcohol use details: socially weekends Substance use: never Substance use type: does not use Other substance usage details: 5MG GUMMY FOR SLEEP Last use: 08/02/23 PM Lack of Transportation: No Lack of Food: Never True Current Housing: I Have Housing Concerned About Future Housing: No Difficulty Paying Gas/Electric Bills: No Difficulty Paying for Meds: No Currently Unemployed: No Education: High School Diploma/GED Difficulty w/ Childcare or Family Care: No Living arrangements: with family Additional living arrangements comments: LIVES WITH SO Occupation/Education: occupation Gender identity (if verbalized by the patient): Female Spiritual care concerns: No Anes - Eval Final PreProcedure Day of Procedure 08/28/25 10:35 Heart: regular rate and rhythm Lungs: clear to auscultation Airway: Mallampati scale class II Neurological: alert and oriented Last oral intake: >/= 8 hours ASA classification: II Anesthetic plan: proceed Anesthesia type and monitoring: monitored anesthesia care Results Review: All pre-operative results and documents have been reviewed as part of the pre- operative evaluation. Informed Consent: The patient's anesthetic plan and its attendant risks and benefits were discussed with the patient/family/POA. Questions were solicited and answers provided to the satisfaction of the patient/family/POA.
[2025-08-28 10:45] VITALS: BP 130/89; PULSE 63; RESP 16; TEMP 36.5; O2SAT 100
[2025-08-28] MEDS: ACETAMINOPHEN 500 MG TABLET 1000 MG PO (10:51)
[2025-08-28] MEDS: LACTATED RINGERS 1,000 ML 30 ML IV CONT (10:59)
[2025-08-28] MEDS: ceFAZolin SODIUM 2 GM/20 ML SW SYRINGE IV PUSH (11:40)
[2025-08-28] MEDS: LIDO 1%/EPINEPHRINE 1:100,000 20 ML VIAL (11:56)
[2025-08-28] MEDS: BUPivacaine HCL 0.5% 10 ML AMP (11:56)
[2025-08-28 12:10] VITALS: BP 114/73; PULSE 69; RESP 16; O2SAT 97
[2025-08-28 12:40] VITALS: BP 115/69; PULSE 62; RESP 16; O2SAT 98
== END 2025-08-28 13:00 | disposition home or self-care (01) ==
LOC: ASC 10:32
PROVIDERS: PCP Internal Medicine; Visit Provider Plastic Surgery
PROC: 01N54ZZ Release Median Nerve, Percutaneous Endoscopic Approach (ICD-10-PCS; CPT 29848; principal; 2025-08-28 12:00)
PROC: (CPT 64718; 2025-08-28 12:00)
DX: G56.01 Carpal tunnel syndrome, right upper limb (principal); G56.21 Lesion of ulnar nerve, right upper limb
CPT/HCPCS: 64718; 29848

== ENCOUNTER 2025-09-06 07:41 | Outpatient (CLI) | payer OTHER, SELFPAY ==
--- NOTE | ~2025-09-06 | DEXA_ITS ---
Bone Density Report Name: KEVIN HAYS Age: 65 Sex: Female Ethnicity: White Date of : 1960 Indication: postmenopausal; screening for osteoporosis; height loss; Referring Provider: FÁTIMA DICKENS Study: Bone densitometry was performed. Exam Date: September 06, 2025 Accession number: [id number] Bone Density: Region BMD T-score Z-score Classification AP Spine(L1-L4) 1.580 4.8 6.6 Normal Femoral Neck (Left) 0.948 0.9 2.4 Normal Total Hip (Left) 1.135 1.6 2.8 Normal World Health Organization criteria for BMD impression classify patients as: Normal (T-score at or above -1.0), Osteopenia (T-score between -1.0 and -2.5), or Osteoporosis (T-score at or below -2.5). 10-year Fracture Risk: FRAX not reported because: All T-scores for Spine Total, Hip Total, Femoral Neck at or above -1.0 Previous Exams: Region Exam Age BMD T-score BMD Change BMD Change Date g/cm2 vs Baseline vs Previous AP Spine (L1-L4) 09/06/2025 65 1.580 4.8 -0.044 (-2.7%) -0.028 (-1.8%) 04/27/2017 57 1.608 5.1 -0.015 (-0.9%) -0.015 (-0.9%) 11/10/2011 51 1.623 5.2 Total Hip(Left) 09/06/2025 65 1.135 1.6 -0.056 (-4.7%) 0.008 (0.7%) 12/20/2019 59 1.127 1.5 -0.064 (-5.3%) -0.016 (-1.4%) 04/27/2017 57 1.143 1.6 -0.048 (-4.0%) -0.048 (-4.0%) 11/10/2011 51 1.191 2.0 *Denotes significance at 95% confidence level, LSC for AP Spine = 0.022 g/cm2, LSC for Total Hip = 0.027 g/cm2 # Denotes dissimilar scan types or analysis methods Clinical Information Provided by Patient: Has used the following medications: Vitamin D Patient maximum height was 65.0 Onset of menses at age 14 Number of children 2 Impression: The patient has normal bone mass. The BMD for the AP Spine (L1-L4) decreased, changing by -1.8% since the last DXA exam. Discussion: LOW RISK OF FRACTURE; BONE DENSITY IS WELL ABOVE THE MINIMUM DESIRABLE LEVEL AND ABOVE AVERAGE FOR AGE AND SEX AT ALL SKELETAL SITES TESTED. This person's bone density is above expected limits for age and sex. This is rarely clinically significant, but should be pursued if there are significant musculoskeletal complaints. The patient should follow a healthful lifestyle (good nutrition with adequate calcium and vitamin D, and appropriate weight-bearing exercise). Follow-Up: Consider repeating this study in 3 to 4 years to reassess this patient's status, or sooner if there is some new clinical indication. Reported by: FIDELINA on 09/06/2025 8:28:00 AM. Reviewed, dictated and finalized at location A.
--- OUTSIDE RECORDS SUMMARY | 2025-09-06 07:44 | XMS_ITS | Clinical Summary ---
Author Organization [facility] Address [address] [place] [address] Care Team Providers Care Golf Course Superintendent Name Role Phone Beau Alamo MD Primary Care Provider +1- [phone] Source Comments [facility],non-owned Affiliates and Associated Physician Practices is amultiple site organization consisting of ambulatory clinics and hospital sitesin [place], [place], [place] and [place]. This disclosure is being madepursuant to the Care Everywhere program and may not contain all information available regarding this patient. Last updated 18.[facility] Allergies No known active allergies Medications * [...] 03/09/1979 DTAP/TDAP/TD VACCINES (1 - Tdap) 1980 PAP SMEAR 1982 Cervical Cancer Screening 1991 PAP with HPV 1991 PNEUMOCOCCAL VACCINE 50+ (1 of 1 - PCV) 2011 ZOSTER VACCINE (1 of 2) 2011 SCREENING FOR DIABETES 02/20/2022 DEPRESSION SCREENING 10/12/2024 COVID-19 VACCINE (1 - 2024-2 6 season) 2025 INFLUENZA VACCINE (#1) 2025 Respiratory [...] patient's age to complete this topic Insurance [facility] Care Teams Golf Course Superintendent Relationship Specialty Start Date End Date Beau Alamo MD [address] [place] [address] PCP - General 01/02/22
--- OUTSIDE RECORDS SUMMARY | 2025-09-06 07:44 | XMS_ITS | Clinical Summary ---
Author Organization [facility] Address [address] [place] [address] Care Team Providers Care Abstract Maker Name Role Phone Unavailable Primary Care Provider [...]
== END 2025-09-06 07:42 | disposition home or self-care (01) ==
LOC: ANHFOHIMG 07:42
PROVIDERS: PCP Internal Medicine; Visit Provider Obstetrics & Gynecology
DX: Z13.820 Encounter for screening for osteoporosis (principal); Z78.0 Asymptomatic menopausal state
CPT/HCPCS: 77080